=== PATIENT | male | born 1940 | race Caucasian/White ===

== ENCOUNTER → 2017-07-15 | Outpatient (CLI) | payer MEDICARE ==
[~2017-07-15] MED LIST: ASPI81EC; Adult Low Dose81 MG PO; Alpha-Lipoic Ac50 MG PO; Anastrozole1 GM PO; CYAN1000I IM; D MANNOSE PO; Glucosamine Ch1 EAC4 PO; HEALTHY HEART1 EACH PO; LOSA50 PO; MEGA MULTI FOR1 EAC1 PO; METF500 PO; MULVITA; MULVITMIND PO; MYRBETRIQ25 MG PO; OMEP20ER PO; OXYACE5T PO; PRILOSEC; PROM25 PO; PROSTATE HEALT1 EACH PO; PSEU120ER PO; RANI150 PO; TAMS.4ER PO; TESTOSTERONE INJ; VALS80 PO; VITAMIN B-12; [UNRECOGNIZED DRUG - OTHER] INJ
[2017-07-15 11:59] LABS: Adenovirus F 40/41 Not Detected (NOT DETECT); Astrovirus Not Detected (NOT DETECT); Campylobacter Sp Not Detected (NOT DETECT); Cryptosporidium Not Detected (NOT DETECT); Cyclospora Cayetanensis Not Detected (NOT DETECT); E. Coli O157 Not Detected (NOT DETECT); Entamoeba Histolytica Not Detected (NOT DETECT); Enteroaggregative E. coli-EAEC Not Detected (NOT DETECT); Enteropathogenic E. coli-EPEC Not Detected (NOT DETECT); Enterotoxigenic E. coli-ETEC Not Detected (NOT DETECT); Giardia Lamblia Not Detected (NOT DETECT); Norovirus GI/GII Not Detected (NOT DETECT); Plesiomonas Shigelloides Not Detected (NOT DETECT); Rotavirus A Not Detected (NOT DETECT); Salmonella Sp Not Detected (NOT DETECT); Sapovirus Not Detected (NOT DETECT); Shiga Toxin-prod E. coli-STEC Not Detected (NOT DETECT); Shigella/Enteroin E. coli-EIEC Not Detected (NOT DETECT); Vibrio Cholerae Not Detected (NOT DETECT); Vibrio Sp Not Detected (NOT DETECT); Yersinia Enterocolitica Not Detected (NOT DETECT)
== END | disposition home or self-care (01) ==
LOC: LAB SHORT 09:30 → LAB 09:30 → EDSTATUS 07-09 15:40 → LAB FUT 07-09 15:40
PROVIDERS: Internal Medicine
DX: R19.7 Diarrhea, unspecified (principal)
CPT/HCPCS: 87507

== ENCOUNTER → 2018-02-10 | Outpatient (CLI) | payer MEDICARE ==
[2018-02-11 08:26] LABS: Source, Urine Clean Catch
[2018-02-11 10:17] LABS: Appearance, Urine Hazy (Clear); Bilirubin, Urine Neg (Neg); Blood, Urine 4+ (Neg); Color, Urine Yellow (P-Yellow); Glucose Qualitative, Urine Neg (Neg); Ketones, Urine Neg (Neg); Leukocyte Esterase, Urine 2+ (Neg); Nitrite, Urine Neg (Neg); Protein, Urine 2+ (Neg); Specific Gravity, Urine 1.025 (1.003-1.022); Urobilinogen, Urine NORM (Normal)
[2018-02-11 11:09] LABS: Bacteria Few /hpf; Mucus Light (0-Heavy); Squamous Epithelial Cells Few /hpf (Few)
[2018-02-11 11:10] LABS: Calcium Oxalate Crystals Few /hpf
== END | disposition home or self-care (01) ==
LOC: LAB SHORT 17:00 → LAB 17:00
PROVIDERS: Internal Medicine
DX: R10.9 Unspecified abdominal pain (principal)
CPT/HCPCS: 81001

== ENCOUNTER 2018-12-21 11:06 | Inpatient (IN) | payer MEDICARE ==
[~2018-12-21] VITALS: Ht 185.4 cm; Wt 108.4 kg
[~2018-12-21 11:06] MED LIST changes: -Adult Low Dose81 MG PO; -OMEP20ER PO
[2018-12-21 11:33] LABS: BASOPHILS ABSOLUTE AUTO 0.03 K/mm3 (0.00-0.23); BASOPHILS PERCENT AUTO 0 % (0-2); EOSINOPHILS PERCENT AUTO 1 % (0-6); Hematocrit 39.1 % (37.0-53.0); Hemoglobin 13.3 g/dL (13.5-17.5); IMMATURE GRAN ABSOLUTE AUTO 0.12 K/mm3 (0.00-0.10); IMMATURE GRAN PERCENT AUTO 1 % (0-1); LYMPHOCYTES ABSOLUTE AUTO 1.12 K/mm3 (0.84-5.20); LYMPHOCYTES PERCENT AUTO 9 % (21-46); MONOCYTES ABSOLUTE AUTO 0.99 K/mm3 (0.16-1.47); MONOCYTES PERCENT AUTO 8 % (4-13); Mean Corpuscular HGB 29.4 pg (26.0-34.0); Mean Corpuscular Volume 86 fL (80-100); Mean Platelet Volume 10.2 fL (9.1-12.4); NEUTROPHILS ABSOLUTE AUTO 10.42 K/mm3 (1.96-9.15); NEUTROPHILS PERCENT AUTO 82 % (41-73); Platelet Count 203 K/mm3 (150-400); RDW Coefficient Variation 13.8 % (11.7-14.2); RDW Standard Deviation 44.1 fL (35.1-46.3); Red Blood Cell Count 4.53 M/mm3 (4.30-5.90); White Blood Cell Count 12.78 K/mm3 (4.00-11.30)
[2018-12-21] MEDS ORDERED: HYDPAM25 PO (11:36)
[2018-12-21 11:53] LABS: Albumin, Blood 2.6 g/dL (3.4-5.0); Albumin/Globulin Ratio 0.6 (0.8-1.8); Bilirubin, Total 0.7 mg/dL (0.1-1.0); Bun/Creatinine Ratio 21.3 (12.0-20.0); Calcium, Blood 8.7 mg/dL (8.5-10.1); Creatinine, Blood 1.27 mg/dL (0.60-1.20); Globulin, Blood 4.5 g/dL (2.2-4.0); Potassium, Blood 3.5 mmol/L (3.5-5.5); Total Protein, Blood 7.1 g/dL (6.4-8.2)
[2018-12-21 12:27] LABS: Source, Urine Catheter
[2018-12-21 12:43] LABS: Bilirubin, Urine Neg (Neg); Blood, Urine 5+ (Neg); Glucose Qualitative, Urine Neg (Neg); Ketones, Urine Neg (Neg); Leukocyte Esterase, Urine 3+ (Neg); Nitrite, Urine Pos (Neg); Protein, Urine 3+ (Neg); Specific Gravity, Urine 1.015 (1.003-1.022); Urobilinogen, Urine NORM (Normal)
[2018-12-21 13:09] LABS: Appearance, Urine Cloudy (Clear); Color, Urine Yellow (P-Yellow)
[2018-12-21 13:10] LABS: Bacteria Many /hpf; Mucus Light (0-Heavy); Squamous Epithelial Cells Few /hpf (Few); White Blood Cells, Urine TNTC /hpf (0-5)
[2018-12-21 13:11] LABS: Free Thyroxine 1.52 ng/dL (0.70-1.60); Magnesium, Blood 1.9 mg/dL (1.6-2.4)
[2018-12-21 13:15] LABS: Thyroid Stimulating Hormone 2.48 uIU/mL (0.360-4.800)
[2018-12-21] MEDS ORDERED: Adult Low Dose81 MG PO (15:40)
[2018-12-21] MEDS ORDERED: OMEP20ER PO (15:40)
[2018-12-21] MEDS ORDERED: Hydrocortiso453.6 G1 TOP (15:42)
[2018-12-21] MEDS ORDERED: BISA10S PR (18:23)
--- NOTE | 2018-12-21 19:17 | NUR ---
SHIFT SUMMARY SINCE ARRIVAL TO UNIT, DNR BRACELET PLACED. URINE HAS BEEN DRAK YELLOW WITH NO C/O PAIN. DENIES NEEDS.
--- NOTE | 2018-12-22 04:45 | NUR ---
MEMBERSHIP SOLICITOR SUMMARY NO ACUTE CHANGES THIS SHIFT. PT AAOX4 AND VERY PLEASANT. CONTINUING ON IV FLUIDS AND ANTIBIOTICS. PT BEDBOUND DUE TO ADVANCED MS. PT IS NORMALLY INDEPENDENT TO HIS WHEELCHAIR, HOWEVER PT REMAINS WEAK AND UNABLE AT THIS TIME. PT REPORTS "FEELING LIKE I HAVE TO PUSH SOMETIMES TO GET MY URINE OUT". RHOADES CATHETER IS PATENT AND DRAINING ADEQUATE AMOUNTS OF URINE. NO OTHER COMPLAINTS FROM PT. VSS, WILL CONTINUE TO MONITOR.
[2018-12-22 05:32] LABS: Hematocrit 35.8 % (37.0-53.0); Hemoglobin 11.9 g/dL (13.5-17.5); Mean Corpuscular HGB 28.7 pg (26.0-34.0); Mean Corpuscular HGB Conc 33.2 g/dL (31.5-36.5); Mean Corpuscular Volume 86 fL (80-100); Mean Platelet Volume 10.4 fL (9.1-12.4); Platelet Count 214 K/mm3 (150-400); RDW Coefficient Variation 13.9 % (11.7-14.2); RDW Standard Deviation 44.2 fL (35.1-46.3); Red Blood Cell Count 4.15 M/mm3 (4.30-5.90); White Blood Cell Count 11.15 K/mm3 (4.00-11.30)
[2018-12-22 05:51] LABS: Anion Gap 8 mmol/L (6-16); Blood Urea Nitrogen 22 mg/dL (8-24); Bun/Creatinine Ratio 18.3 (12.0-20.0); CO2, Blood 25 mmol/L (21-32); Calcium, Blood 8.3 mg/dL (8.5-10.1); Chloride, Blood 109 mmol/L (98-108); Glomerular Filtration Rate >60 (60-); Glucose, Blood 101 mg/dL (70-99); Magnesium, Blood 1.8 mg/dL (1.6-2.4); Potassium, Blood 3.5 mmol/L (3.5-5.5); Sodium, Blood 142 mmol/L (136-145)
[2018-12-22 05:55] LABS: BASOPHILS PERCENT MAN 0 % (0-2); EOSINOPHILS ABSOLUTE MAN 0.33 K/mm3 (0.00-0.68); EOSINOPHILS PERCENT MAN 3 % (0-6); LYMPHOCYTES % ATYPICAL MANUAL 4 % (0-0); LYMPHOCYTES ABSOLUTE MAN 1.22 K/mm3 (0.84-5.20); LYMPHOCYTES PERCENT MAN 7 % (21-46); MONOCYTES ABSOLUTE MAN 1.33 K/mm3 (0.16-1.47); MONOCYTES PERCENT MAN 12 % (4-13); NEUTROPHILS ABSOLUTE MAN 8.25 K/mm3 (1.96-9.15); SEG NEUTROPHILS PERCENT MAN 74 % (41-73); TOTAL CELLS COUNTED 100
--- NOTE | 2018-12-22 20:21 | NUR ---
SUMMARY PT IS A/O X4, PLEASANT AFFECT. HX ADVANCED MS, W/C BOUND @ HOME. HE STATE GOOD FEELING BLE, STATES NORMALLY ABLE TO TRANSFER TO W/C HOWEVER NEEDS ASSIST @ THIS TIME D/T INCREASED WEAKNESS. DX UTI, HE HAS CHR RHOADES CATH D/T NEUROGENIC BLADDER, STATE HE CHANGES HIMSELF, STATE CHANGED 9 DAYS AGO, DECLINES TO HAVE IT CHANGED @ ADMIT WHILE IN ER. IV ANTIBX ARE ORDERED. HE STATE INTERMITTANT PAIN "URETHRA", DR MANNING ORDER PYRIDIUM, PT STATE EFFECTIVE. ORDER TRAMADOL FOR CHR R SHOULDER PAIN. VSS.
--- NOTE | 2018-12-23 04:07 | NUR ---
PT HAD AN UNEVENTFUL SHIFT. VSS. PAIN WAS MANAGED WITH THE PRN MEDS ORDERED. PT REMAINS A 1X ASSIST TURN PIVOT TO THE COMMODE. WILL CONTINUE TO MONITOR.
--- NOTE | 2018-12-23 16:31 | NUR ---
Spiritual care visit conducted. Patient openly shares about his spiritual journey, asks questions of a spiritual nature, discusses his family unit complications. I listen empathically, provide pastoral school counselor and provide prayer. Patient responds well and invites me to come back anytime.
--- NOTE | 2018-12-24 05:33 | NUR ---
SUMMARY: A/OX4, SPECIFIES NEEDS AND SLEPT MAJORITY OF SHIFT. PT HAS HX MS, IS W/C BOUND AT HOME AND IS 1-2P ASSIST TO BSC. CHRONIC RHOADES FOR NEUROGENIC BLADDER IS PATENT AND DRAINING. ORANGE URINE OBSERVED D/T RECIEVING PYRIDIUM PRN AT HS W/GOOD RELIEF REPORTED. IV ABX BEING RECIEVED FOR UTI. NO ACUTE CHANGES, VSS/AFEBRILE AND PT SLEPT MAJORITY OF NOCTE. URINE CX'S PENDING THEN PROBABLE D/C TO SNFF. WCTM AND REPORT TO DAY RN.
[2018-12-24] MEDS ORDERED: ACET325 PO (11:25)
[2018-12-24] MEDS ORDERED: Vsl#3 Capsule1 EACH PO (11:26)
[2018-12-24] MEDS ORDERED: Pyridium200 MG PO (11:26)
[2018-12-24] MEDS ORDERED: LEVO750 PO (11:27)
--- NOTE | 2018-12-24 12:20 | NUR ---
CATHETER CARE PERFORMED PRIOR TO DISCHARGE. PT. LEFT VIA HIS PERSONAL WC WHICH HE PIVOT TRANSFERS INTO, RHOADES CATHETER IN PLACE. TRIED TO CALL OLEGARIO RIGGINS TO GIVE REPORT BUT WAS KEPT ON HOLD FOR OVER 10 MINUTES WILL TRY AGAIN.
--- NOTE | 2018-12-24 12:40 | NUR ---
JACQUI FERNANDO FROM CALLED BACK TO GET REPORT REPORT ON PT. CHOPRA THAT LEFT HERE EARLIER. ALSO GAVE REPORT ON GIOVANNA INGRAM WHO WAS BEING PICKED UP AT THIS TIME. PAPERWORK FOR BOTH PT'S GIVEN TO ELECTRONICS PROCESSING SUPERVISOR.
== END 2018-12-24 12:20 | DRG 699 ==
LOC: ER 11:06 → MEDS 14:42 → ENPENDDIS 12-24 10:58 → MEDS 12-24 12:20
PROVIDERS: Emergency Medicine; ADMIT Internal Medicine
DX: T83.511A Infection and inflammatory reaction due to indwelling urethral catheter, initial encounter (principal); N17.9 Acute kidney failure, unspecified; G11.4 Hereditary spastic paraplegia; N39.0 Urinary tract infection, site not specified; E86.0 Dehydration; I10 Essential (primary) hypertension; G35 Multiple sclerosis; Z74.09 Other reduced mobility; N31.9 Neuromuscular dysfunction of bladder, unspecified; I35.0 Nonrheumatic aortic (valve) stenosis; Z66 Do not resuscitate; Z88.0 Allergy status to penicillin; Z79.811 Long term (current) use of aromatase inhibitors; Z79.84 Long term (current) use of oral hypoglycemic drugs; Z79.82 Long term (current) use of aspirin; Z79.899 Other long term (current) drug therapy
CPT/HCPCS: 36415; 51702; 70450; 71045; 80048; 80053; 81001; 83735; 84439; 84443; 85025; 87077; 87086; 87147; 87186; 93005; 93010; 96361; 96365; 97110; 97162; 97166; 97530; 97535; 99285-25; A9270; J0744; J1650; J1956; J7030

== ENCOUNTER 2019-07-16 17:58 | Inpatient (IN) | payer MEDICARE ==
[~2019-07-16] VITALS: Ht 185.4 cm; Wt 114.6 kg
[~2019-07-16 17:58] MED LIST changes: +ACET325 PO; +Adult Low Dose81 MG PO; +BISA10S PR; +HYDPAM25 PO; +Hydrocortiso453.6 G1 TOP; +LEVO750 PO; +OMEP20ER PO; +Pyridium200 MG PO; +Vsl#3 Capsule1 EACH PO
[2019-07-16 18:24] LABS: BASOPHILS ABSOLUTE AUTO 0.04 K/mm3 (0.00-0.23); BASOPHILS PERCENT AUTO 0 % (0-2); EOSINOPHILS PERCENT AUTO 0 % (0-6); Hematocrit 37.8 % (37.0-53.0); Hemoglobin 12.7 g/dL (13.5-17.5); IMMATURE GRAN ABSOLUTE AUTO 0.12 K/mm3 (0.00-0.10); IMMATURE GRAN PERCENT AUTO 1 % (0-1); LYMPHOCYTES ABSOLUTE AUTO 0.49 K/mm3 (0.84-5.20); LYMPHOCYTES PERCENT AUTO 3 % (21-46); MONOCYTES ABSOLUTE AUTO 1.08 K/mm3 (0.16-1.47); MONOCYTES PERCENT AUTO 6 % (4-13); Mean Corpuscular HGB 28.8 pg (26.0-34.0); Mean Corpuscular HGB Conc 33.6 g/dL (31.5-36.5); Mean Corpuscular Volume 86 fL (80-100); Mean Platelet Volume 9.7 fL (9.1-12.4); NEUTROPHILS ABSOLUTE AUTO 16.66 K/mm3 (1.96-9.15); NEUTROPHILS PERCENT AUTO 91 % (41-73); Platelet Count 260 K/mm3 (150-400); RDW Coefficient Variation 13.7 % (11.7-14.2); RDW Standard Deviation 43.1 fL (35.1-46.3); Red Blood Cell Count 4.41 M/mm3 (4.30-5.90); White Blood Cell Count 18.39 K/mm3 (4.00-11.30)
[2019-07-16] MEDS ORDERED: ZOLPIDEM TARTRA10 MG PO (18:47)
[2019-07-16] MEDS ORDERED: LOSA50 PO (18:48)
[2019-07-16] MEDS ORDERED: XYZAL5 MG PO (18:49)
[2019-07-16] MEDS ORDERED: ALLEGRA ALLERG180 MG PO (18:49)
[2019-07-16] MEDS ORDERED: HYDHCL25 PO (18:50)
[2019-07-16 18:52] LABS: Albumin, Blood 2.9 g/dL (3.4-5.0); Albumin/Globulin Ratio 0.6 (0.8-1.8); Bilirubin, Total 0.8 mg/dL (0.1-1.0); Bun/Creatinine Ratio 17.8 (12.0-20.0); Calcium, Blood 8.9 mg/dL (8.5-10.1); Creatinine, Blood 1.57 mg/dL (0.60-1.20); Globulin, Blood 4.6 g/dL (2.2-4.0); Potassium, Blood 3.9 mmol/L (3.5-5.5); Total Protein, Blood 7.5 g/dL (6.4-8.2)
[2019-07-16 19:14] LABS: Bilirubin, Urine Neg (Neg); Blood, Urine 5+ (Neg); Glucose Qualitative, Urine Neg (Neg); Ketones, Urine 2+ (Neg); Leukocyte Esterase, Urine 3+ (Neg); Nitrite, Urine Pos (Neg); Protein, Urine 3+ (Neg); Specific Gravity, Urine 1.015 (1.003-1.022); Urobilinogen, Urine NORM (Normal)
[2019-07-16 19:21] LABS: Appearance, Urine Hazy (Clear); Color, Urine Yellow (P-Yellow); White Blood Cells, Urine TNTC /hpf (0-5)
[2019-07-16 19:24] LABS: Bacteria Many /hpf; Squamous Epithelial Cells Not Seen /hpf (Few)
--- NOTE | 2019-07-17 05:08 | NUR ---
SHIFT SUMMARY: 79 Y/O OBESE MALE RESTED COMFORTABLY ALL SHIFT; RHOADES CATHETER DRAINING DARK YELLOW FLUID WITH SEDIMENT ATTACHED TO RIGHT UPPER THIGH; ALERT AND ORIENTED X 2; ABLE TO FOLLOW ALL SIMPLE VERBAL COMMANDS; DENIES PAIN OR NAUSEA; BED ALARM APPLIED, BED LOW POSITION WITH CALL LIGHT AT SIDE.
[2019-07-17 05:23] LABS: BASOPHILS ABSOLUTE AUTO 0.03 K/mm3 (0.00-0.23); BASOPHILS PERCENT AUTO 0 % (0-2); EOSINOPHILS PERCENT AUTO 0 % (0-6); Hematocrit 33.4 % (37.0-53.0); Hemoglobin 11.1 g/dL (13.5-17.5); IMMATURE GRAN ABSOLUTE AUTO 0.15 K/mm3 (0.00-0.10); IMMATURE GRAN PERCENT AUTO 1 % (0-1); LYMPHOCYTES ABSOLUTE AUTO 0.49 K/mm3 (0.84-5.20); LYMPHOCYTES PERCENT AUTO 3 % (21-46); MONOCYTES ABSOLUTE AUTO 1.11 K/mm3 (0.16-1.47); MONOCYTES PERCENT AUTO 7 % (4-13); Mean Corpuscular HGB 29.1 pg (26.0-34.0); Mean Corpuscular HGB Conc 33.2 g/dL (31.5-36.5); Mean Corpuscular Volume 87 fL (80-100); Mean Platelet Volume 10.2 fL (9.1-12.4); NEUTROPHILS ABSOLUTE AUTO 13.51 K/mm3 (1.96-9.15); NEUTROPHILS PERCENT AUTO 88 % (41-73); Platelet Count 218 K/mm3 (150-400); RDW Coefficient Variation 14.1 % (11.7-14.2); RDW Standard Deviation 45.2 fL (35.1-46.3); Red Blood Cell Count 3.82 M/mm3 (4.30-5.90); White Blood Cell Count 15.29 K/mm3 (4.00-11.30)
[2019-07-17 05:48] LABS: Bun/Creatinine Ratio 16.6 (12.0-20.0); Calcium, Blood 7.9 mg/dL (8.5-10.1); Creatinine, Blood 1.63 mg/dL (0.60-1.20); Potassium, Blood 3.7 mmol/L (3.5-5.5)
--- NOTE | 2019-07-17 19:38 | NUR ---
SHIFT SUMMARY: NO ACUTE CHANGES TO REPORT THIS SHIFT. PT HX DEMENTIA; A&OX2; NEEDS FREQUENT REMINDERS & REDIRECTION.CHRONIC RHOADES IN PLACE; PATENT & DRAINING. MEDICATED FOR BACK PAIN PER EMAR. IV FLUIDS CONTINUING. REPORT GIVEN TO ONCOMING RN.
--- NOTE | 2019-07-18 04:29 | NUR ---
SHIFT SUMMARY: 79 Y/O OBESE MALE HAD TEMPERATURE 102.0 THIS SHIFT WITH TYLENOL 650MG PO GIVEN AND FOLLOW UP TEMPERATURE 101.4; LUNG SOUNDS ARE CLEAR THROUGHOUT; ALERT AND ORIENTED X 2; USING BEDSIDE CALL LIGHT; DENIES PAIN OR NAUSEA; RHOADES DRAINING DARK YELLOW FLUID WITH SEDIMENT; BED ALARM APPLIED, BED LOW POSITION WITH CALL LIGHT AT SIDE.
[2019-07-18 05:17] LABS: BASOPHILS ABSOLUTE AUTO 0.03 K/mm3 (0.00-0.23); BASOPHILS PERCENT AUTO 0 % (0-2); EOSINOPHILS ABSOLUTE AUTO 0.03 K/mm3 (0.00-0.68); EOSINOPHILS PERCENT AUTO 0 % (0-6); Hematocrit 32.7 % (37.0-53.0); Hemoglobin 10.7 g/dL (13.5-17.5); IMMATURE GRAN ABSOLUTE AUTO 0.08 K/mm3 (0.00-0.10); IMMATURE GRAN PERCENT AUTO 1 % (0-1); LYMPHOCYTES ABSOLUTE AUTO 0.46 K/mm3 (0.84-5.20); LYMPHOCYTES PERCENT AUTO 4 % (21-46); MONOCYTES ABSOLUTE AUTO 0.73 K/mm3 (0.16-1.47); MONOCYTES PERCENT AUTO 6 % (4-13); Mean Corpuscular HGB 28.5 pg (26.0-34.0); Mean Corpuscular HGB Conc 32.7 g/dL (31.5-36.5); Mean Corpuscular Volume 87 fL (80-100); Mean Platelet Volume 10.2 fL (9.1-12.4); NEUTROPHILS ABSOLUTE AUTO 11.07 K/mm3 (1.96-9.15); NEUTROPHILS PERCENT AUTO 89 % (41-73); Platelet Count 229 K/mm3 (150-400); RDW Coefficient Variation 13.9 % (11.7-14.2); Red Blood Cell Count 3.76 M/mm3 (4.30-5.90)
[2019-07-18 05:44] LABS: Bun/Creatinine Ratio 17.8 (12.0-20.0); Calcium, Blood 7.7 mg/dL (8.5-10.1); Creatinine, Blood 1.52 mg/dL (0.60-1.20); Potassium, Blood 3.7 mmol/L (3.5-5.5)
[2019-07-18 09:36] LABS: Adenovirus Not Detected (NOT DETECT); Bordetella pertussis Not Detected (NOT DETECT); Chlamydophila pneumoniae Not Detected (NOT DETECT); Coronavirus 229E Not Detected (NOT DETECT); Coronavirus HKU1 Not Detected (NOT DETECT); Coronavirus NL63 Not Detected (NOT DETECT); Coronavirus OC43 Not Detected (NOT DETECT); Human Metapneumovirus Not Detected (NOT DETECT); Human Rhinovirus/Enterovirus Not Detected (NOT DETECT); Influenza A Not Detected (NOT DETECT); Influenza A/2009-H1 Not Detected (NOT DETECT); Influenza A/H1 Not Detected (NOT DETECT); Influenza A/H3 Not Detected (NOT DETECT); Influenza B Not Detected (NOT DETECT); Mycoplasma pneumoniae Not Detected (NOT DETECT); Parainfluenza Virus 1 Not Detected (NOT DETECT); Parainfluenza Virus 2 Not Detected (NOT DETECT); Parainfluenza Virus 3 Not Detected (NOT DETECT); Parainfluenza Virus 4 Not Detected (NOT DETECT); Respiratory Syncytial Virus Not Detected (NOT DETECT)
--- NOTE | 2019-07-18 18:40 | NUR ---
SHIFT SUMMARY: NO ACUTE CHANGES TO REPORT THIS SHIFT. PT A&O; CALM AND COOPERATIVE WITH CARE. HX FALLS, WEAKNESS - MULTIPLE SCLEROSIS; BEDREST. RHOADES IN PLACE R/T NEUROGENIC BLADDER; PATENT AND DRAINING. MEDICATED FOR BACK PAIN PER EMAR; EGGCRATE ADDED TO BED. IV ABX & FLUIDS CONTINUING. WCTM.
--- NOTE | 2019-07-19 05:15 | NUR ---
RESTING QUIETLY WITH OCCASIONAL INTERRUPTIONS. IVF INFUSING AT 75 ML/HR. RECEIVED TYLENOL X 2 THIS SHIFT FOR DISCOMFORT. CURRENTLY RESTING QUIETLY. CALL LIGHT IN REACH.
[2019-07-19 05:25] LABS: BASOPHILS ABSOLUTE AUTO 0.03 K/mm3 (0.00-0.23); BASOPHILS PERCENT AUTO 0 % (0-2); EOSINOPHILS ABSOLUTE AUTO 0.22 K/mm3 (0.00-0.68); EOSINOPHILS PERCENT AUTO 2 % (0-6); Hematocrit 34.1 % (37.0-53.0); Hemoglobin 11.3 g/dL (13.5-17.5); IMMATURE GRAN ABSOLUTE AUTO 0.06 K/mm3 (0.00-0.10); IMMATURE GRAN PERCENT AUTO 1 % (0-1); LYMPHOCYTES ABSOLUTE AUTO 0.68 K/mm3 (0.84-5.20); LYMPHOCYTES PERCENT AUTO 7 % (21-46); MONOCYTES ABSOLUTE AUTO 0.67 K/mm3 (0.16-1.47); MONOCYTES PERCENT AUTO 7 % (4-13); Mean Corpuscular HGB 28.6 pg (26.0-34.0); Mean Corpuscular HGB Conc 33.1 g/dL (31.5-36.5); Mean Corpuscular Volume 86 fL (80-100); Mean Platelet Volume 10.4 fL (9.1-12.4); NEUTROPHILS ABSOLUTE AUTO 7.66 K/mm3 (1.96-9.15); NEUTROPHILS PERCENT AUTO 82 % (41-73); Platelet Count 268 K/mm3 (150-400); RDW Coefficient Variation 14.2 % (11.7-14.2); RDW Standard Deviation 45.5 fL (35.1-46.3); Red Blood Cell Count 3.95 M/mm3 (4.30-5.90); White Blood Cell Count 9.32 K/mm3 (4.00-11.30)
[2019-07-19 05:48] LABS: Bun/Creatinine Ratio 16.7 (12.0-20.0); Calcium, Blood 8.3 mg/dL (8.5-10.1); Creatinine, Blood 1.26 mg/dL (0.60-1.20); Potassium, Blood 4.2 mmol/L (3.5-5.5)
--- NOTE | 2019-07-19 14:49 | NUR ---
Patient is lying in bed and alert. Patient's spouse, Atiya, is bedside. They tell me about patient's medical history, about both of their spiritual journey's and about the plan moving forward. Patient tells me his concern about black mold where he lives, about living with M.S. and and his spiritual struggles. I listen empathically, reinforce helpful attitudes and practices, normalize patient's experience and provide pastoral executive assistant to general counsel and prayer. Patient responds well and shows signs of restored eduardo. I will continue to remain available to patient and family.
[2019-07-19] MEDS ORDERED: CIPR500 PO (15:56)
[2019-07-19] MEDS ORDERED: Vsl#3 Capsule1 EACH PO (15:57)
[2019-07-19] MEDS ORDERED: DELTASONE20 MG PO (15:58)
--- NOTE | 2019-07-19 16:53 | NUR ---
PATIENT DC'D TO [facility] VIA [facility]. REPORTS CALLED TO FRANCINE NURSE AT [facility]. PACKET GIVEN TO WHEAT AND OATS FLAKE MILLER, SCRIPT FOR AMBIEN PLACED IN PACKET. PATIENT DENIES ANY FURTHER QUESTIONS OR CONCERNS.
== END 2019-07-19 16:50 | DRG 698 ==
LOC: ER 17:58 → MEDS 20:46
PROVIDERS: Emergency Medicine; Internal Medicine; ADMIT Hospitalist
DX: T83.511A Infection and inflammatory reaction due to indwelling urethral catheter, initial encounter (principal); A41.9 Sepsis, unspecified organism; R65.20 Severe sepsis without septic shock; N17.9 Acute kidney failure, unspecified; N39.0 Urinary tract infection, site not specified; G35 Multiple sclerosis; I35.0 Nonrheumatic aortic (valve) stenosis; I87.2 Venous insufficiency (chronic) (peripheral); I10 Essential (primary) hypertension; G62.9 Polyneuropathy, unspecified; N31.9 Neuromuscular dysfunction of bladder, unspecified; K59.09 Other constipation; J30.2 Other seasonal allergic rhinitis; Z88.0 Allergy status to penicillin; Z74.09 Other reduced mobility
CPT/HCPCS: 0099U; 36415; 80048; 80053; 81001; 83605; 85025; 87086; 93005; 93010; 96361; 96365; 97110; 97112; 97162; 99285-25; A9270; J0744; J1650; J1956; J3480; J7030; J7050

== ENCOUNTER 2020-01-08 17:52 | Emergency (ER) | payer MEDICARE ==
[~2020-01-08] VITALS: Ht 172.7 cm; Wt 111.1 kg
[~2020-01-08 17:52] MED LIST changes: +ALLEGRA ALLERG180 MG PO; +CIPR500 PO; +DELTASONE20 MG PO; +HYDHCL25 PO; +LOSA25 PO; +XYZAL5 MG PO; +ZOLPIDEM TARTRA10 MG PO
[2020-01-08 18:26] LABS: BASOPHILS ABSOLUTE AUTO 0.02 K/mm3 (0.00-0.23); BASOPHILS PERCENT AUTO 0 % (0-2); EOSINOPHILS ABSOLUTE AUTO 0.05 K/mm3 (0.00-0.68); EOSINOPHILS PERCENT AUTO 0 % (0-6); Hemoglobin 13.2 g/dL (13.5-17.5); IMMATURE GRAN ABSOLUTE AUTO 0.04 K/mm3 (0.00-0.10); IMMATURE GRAN PERCENT AUTO 0 % (0-1); LYMPHOCYTES ABSOLUTE AUTO 0.56 K/mm3 (0.84-5.20); LYMPHOCYTES PERCENT AUTO 5 % (21-46); MONOCYTES ABSOLUTE AUTO 1.17 K/mm3 (0.16-1.47); MONOCYTES PERCENT AUTO 10 % (4-13); Mean Corpuscular HGB 29.1 pg (26.0-34.0); Mean Corpuscular HGB Conc 33.8 g/dL (31.5-36.5); Mean Corpuscular Volume 86 fL (80-100); Mean Platelet Volume 10.1 fL (9.1-12.4); NEUTROPHILS ABSOLUTE AUTO 10.03 K/mm3 (1.96-9.15); NEUTROPHILS PERCENT AUTO 85 % (41-73); Platelet Count 201 K/mm3 (150-400); RDW Coefficient Variation 13.8 % (11.7-14.2); RDW Standard Deviation 43.2 fL (35.1-46.3); Red Blood Cell Count 4.54 M/mm3 (4.30-5.90); White Blood Cell Count 11.87 K/mm3 (4.00-11.30)
[2020-01-08 18:32] LABS: Alanine Aminotransfer (ALT/SGP 15 U/L (12-78); Albumin/Globulin Ratio 0.7 (0.8-1.8); Alk Phos 105 U/L (50-136); Anion Gap 7 mmol/L (6-16); Aspartate Aminotrans (AST/SGOT 14 U/L (12-37); Bilirubin, Total 0.5 mg/dL (0.1-1.0); Blood Urea Nitrogen 18 mg/dL (8-24); Bun/Creatinine Ratio 16.5 (12.0-20.0); CO2, Blood 23 mmol/L (21-32); Calcium, Blood 8.5 mg/dL (8.5-10.1); Chloride, Blood 106 mmol/L (98-108); Creatinine, Blood 1.09 mg/dL (0.60-1.20); Globulin, Blood 4.1 g/dL (2.2-4.0); Glomerular Filtration Rate >60 (60-); Glucose, Blood 115 mg/dL (70-99); Potassium, Blood 3.7 mmol/L (3.5-5.5); Sodium, Blood 136 mmol/L (136-145); Total Protein, Blood 7.1 g/dL (6.4-8.2)
[2020-01-08 19:42] LABS: Source, Urine Catheter
[2020-01-08 19:48] LABS: Appearance, Urine Hazy (Clear); Bilirubin, Urine Neg (Neg); Blood, Urine 5+ (Neg); Color, Urine Yellow (P-Yellow); Glucose Qualitative, Urine Neg (Neg); Ketones, Urine Neg (Neg); Leukocyte Esterase, Urine 3+ (Neg); Nitrite, Urine Neg (Neg); Protein, Urine 2+ (Neg); Urobilinogen, Urine NORM (Normal)
[2020-01-08 19:56] LABS: Amorphous Light (0-Heavy); Bacteria Many /hpf; Mucus Light (0-Heavy); Squamous Epithelial Cells Rare /hpf (Few); White Blood Cells, Urine 50-100 /hpf (0-5)
[2020-01-08] MEDS ORDERED: Cipro500 MG PO ×2 (20:36→21:51)
[2020-01-08] MEDS ORDERED: ATORVASTATIN CA20 MG PO (20:41)
== END 2020-01-08 21:50 | disposition home or self-care (01) ==
LOC: ER 17:52
PROVIDERS: Emergency Medicine
DX: N39.0 Urinary tract infection, site not specified (principal); Z96.0 Presence of urogenital implants; Z86.69 Personal history of other diseases of the nervous system and sense organs; Z88.0 Allergy status to penicillin; Z79.899 Other long term (current) drug therapy
CPT/HCPCS: 36415; 51702; 80053; 81001; 83690; 84484; 85025; 87077; 87086; 87186; 93005; 93010; 99284-25

== ENCOUNTER 2020-05-08 10:47 | Emergency (ER) | payer MEDICARE ==
[~2020-05-08] VITALS: Ht 185.4 cm; Wt 102.1 kg
[~2020-05-08 10:47] MED LIST changes: +ATORVASTATIN CA20 MG PO; +Cipro500 MG PO
[2020-05-08 11:20] LABS: BASOPHILS ABSOLUTE AUTO 0.03 K/mm3 (0.00-0.23); BASOPHILS PERCENT AUTO 0 % (0-2); EOSINOPHILS ABSOLUTE AUTO 0.09 K/mm3 (0.00-0.68); EOSINOPHILS PERCENT AUTO 1 % (0-6); Hematocrit 39.5 % (37.0-53.0); Hemoglobin 13.1 g/dL (13.5-17.5); IMMATURE GRAN ABSOLUTE AUTO 0.02 K/mm3 (0.00-0.10); IMMATURE GRAN PERCENT AUTO 0 % (0-1); LYMPHOCYTES ABSOLUTE AUTO 0.45 K/mm3 (0.84-5.20); LYMPHOCYTES PERCENT AUTO 4 % (21-46); MONOCYTES ABSOLUTE AUTO 0.87 K/mm3 (0.16-1.47); MONOCYTES PERCENT AUTO 8 % (4-13); Mean Corpuscular HGB 29.1 pg (26.0-34.0); Mean Corpuscular HGB Conc 33.2 g/dL (31.5-36.5); Mean Corpuscular Volume 88 fL (80-100); Mean Platelet Volume 10.2 fL (9.1-12.4); NEUTROPHILS ABSOLUTE AUTO 9.35 K/mm3 (1.96-9.15); NEUTROPHILS PERCENT AUTO 87 % (41-73); Platelet Count 162 K/mm3 (150-400); RDW Coefficient Variation 14.7 % (11.7-14.2); White Blood Cell Count 10.81 K/mm3 (4.00-11.30)
[2020-05-08 11:29] LABS: Source, Urine Catheter
[2020-05-08 11:32] LABS: Appearance, Urine Cloudy (Clear); Bilirubin, Urine Neg (Neg); Blood, Urine 5+ (Neg); Color, Urine Yellow (P-Yellow); Glucose Qualitative, Urine Neg (Neg); Ketones, Urine Neg (Neg); Leukocyte Esterase, Urine 3+ (Neg); Nitrite, Urine Pos (Neg); Protein, Urine 3+ (Neg); Urobilinogen, Urine NORM (Normal); pH, Urine 6.5 (5.0-8.0)
[2020-05-08 11:36] LABS: Alanine Aminotransfer (ALT/SGP 25 U/L (12-78); Albumin, Blood 2.5 g/dL (3.4-5.0); Albumin/Globulin Ratio 0.6 (0.8-1.8); Alk Phos 115 U/L (50-136); Anion Gap 6 mmol/L (6-16); Aspartate Aminotrans (AST/SGOT 31 U/L (12-37); Bilirubin, Total 0.7 mg/dL (0.1-1.0); Blood Urea Nitrogen 19 mg/dL (8-24); Bun/Creatinine Ratio 17.4 (12.0-20.0); CO2, Blood 24 mmol/L (21-32); Calcium, Blood 8.4 mg/dL (8.5-10.1); Chloride, Blood 107 mmol/L (98-108); Creatinine, Blood 1.09 mg/dL (0.60-1.20); Free Thyroxine 1.21 ng/dL (0.70-1.60); Globulin, Blood 4.4 g/dL (2.2-4.0); Glomerular Filtration Rate >60 (60-); Glucose, Blood 112 mg/dL (70-99); Potassium, Blood 4.2 mmol/L (3.5-5.5); Sodium, Blood 137 mmol/L (136-145); Total Protein, Blood 6.9 g/dL (6.4-8.2)
[2020-05-08 12:00] LABS: White Blood Cells, Urine TNTC /hpf (0-5)
[2020-05-08 12:01] LABS: Amorphous Mod (0-Heavy); Bacteria Many /hpf; Squamous Epithelial Cells Rare /hpf (Few); Transitional Epithelial Cells Few /hpf (0-Rare)
[2020-05-08] MEDS ORDERED: PLAVIX75 MG PO (12:22)
[2020-05-08] MEDS ORDERED: METOPROLOL SUCC25 MG PO (12:22)
[2020-05-08] MEDS ORDERED: ATOR40TA PO (12:22)
[2020-05-08] MEDS ORDERED: LOSARTAN POTASS25 M2 PO (12:22)
[2020-05-08] MEDS ORDERED: CIPR500 PO (12:40)
== END 2020-05-08 14:15 | disposition home or self-care (01) ==
LOC: ER 10:47
PROVIDERS: Emergency Medicine
DX: N39.0 Urinary tract infection, site not specified (principal); B35.6 Tinea cruris; Z88.0 Allergy status to penicillin; Z79.899 Other long term (current) drug therapy; Z79.02 Long term (current) use of antithrombotics/antiplatelets
CPT/HCPCS: 51702; 71045; 80053; 81001; 83735; 84439; 84443; 85025; 87077; 87086; 87186; 93005; 93010; 96374-59; 99284-25; J0744; J7030

== ENCOUNTER 2020-07-25 10:31 | Emergency (ER) | payer MEDICARE ==
[~2020-07-25] VITALS: Ht 185.4 cm; Wt 101.6 kg
[~2020-07-25 10:31] MED LIST changes: +ATOR40TA PO; +LOSARTAN POTASS25 M2 PO; +METOPROLOL SUCC25 MG PO; +PLAVIX75 MG PO
[2020-07-25 10:56] LABS: Source, Urine Clean Catch
[2020-07-25 11:03] LABS: BASOPHILS ABSOLUTE AUTO 0.03 K/mm3 (0.00-0.23); BASOPHILS PERCENT AUTO 0 % (0-2); EOSINOPHILS ABSOLUTE AUTO 0.06 K/mm3 (0.00-0.68); EOSINOPHILS PERCENT AUTO 1 % (0-6); Hematocrit 40.4 % (37.0-53.0); Hemoglobin 12.9 g/dL (13.5-17.5); IMMATURE GRAN ABSOLUTE AUTO 0.05 K/mm3 (0.00-0.10); IMMATURE GRAN PERCENT AUTO 0 % (0-1); LYMPHOCYTES ABSOLUTE AUTO 0.52 K/mm3 (0.84-5.20); LYMPHOCYTES PERCENT AUTO 4 % (21-46); MONOCYTES ABSOLUTE AUTO 0.82 K/mm3 (0.16-1.47); MONOCYTES PERCENT AUTO 6 % (4-13); Mean Corpuscular HGB 28.7 pg (26.0-34.0); Mean Corpuscular HGB Conc 31.9 g/dL (31.5-36.5); Mean Corpuscular Volume 90 fL (80-100); Mean Platelet Volume 9.9 fL (9.1-12.4); NEUTROPHILS PERCENT AUTO 89 % (41-73); Platelet Count 211 K/mm3 (150-400); RDW Coefficient Variation 15.2 % (11.7-14.2); RDW Standard Deviation 49.9 fL (35.1-46.3); White Blood Cell Count 12.88 K/mm3 (4.00-11.30)
[2020-07-25 11:10] LABS: Appearance, Urine Hazy (Clear); Color, Urine Orange (P-Yellow); Glucose Qualitative, Urine Neg (Neg); Ketones, Urine Neg (Neg); Leukocyte Esterase, Urine 3+ (Neg); Nitrite, Urine Pos (Neg); Protein, Urine 2+ (Neg)
[2020-07-25 11:11] LABS: Bilirubin, Urine 2+ (Neg); Blood, Urine 4+ (Neg); Urobilinogen, Urine 2+ (Normal)
[2020-07-25 11:18] LABS: White Blood Cells, Urine 50-100 /hpf (0-5)
[2020-07-25 11:21] LABS: Bacteria Many /hpf; Squamous Epithelial Cells Not Seen /hpf (Few)
[2020-07-25 11:22] LABS: Red Blood Cells, Urine 25-50 /hpf (0-2)
[2020-07-25 11:26] LABS: Alanine Aminotransfer (ALT/SGP 18 U/L (12-78); Albumin, Blood 3.2 g/dL (3.4-5.0); Albumin/Globulin Ratio 0.8 (0.8-1.8); Alk Phos 132 U/L (50-136); Anion Gap 7 mmol/L (6-16); Aspartate Aminotrans (AST/SGOT 15 U/L (12-37); Bilirubin, Total 1.3 mg/dL (0.1-1.0); Blood Urea Nitrogen 22 mg/dL (8-24); CO2, Blood 27 mmol/L (21-32); Calcium, Blood 9.1 mg/dL (8.5-10.1); Chloride, Blood 108 mmol/L (98-108); Glomerular Filtration Rate >60 (60-); Glucose, Blood 102 mg/dL (70-99); Potassium, Blood 3.9 mmol/L (3.5-5.5); Sodium, Blood 142 mmol/L (136-145); Total Protein, Blood 7.2 g/dL (6.4-8.2)
[2020-07-25] MEDS ORDERED: Bactrim Ds Tab1 EACH PO (12:18)
== END 2020-07-25 13:05 | disposition home or self-care (01) ==
LOC: ER 10:31
PROVIDERS: Physician Assistant
DX: N39.0 Urinary tract infection, site not specified (principal); Z88.0 Allergy status to penicillin; Z79.02 Long term (current) use of antithrombotics/antiplatelets; Z79.899 Other long term (current) drug therapy
CPT/HCPCS: 51702; 80053; 81001; 85025; 87077; 87086; 87186; 93005; 93010; 96365-59; 99284-25; J2185

== ENCOUNTER → 2020-10-31 | Outpatient (CLI) | payer MEDICARE ==
[~2020-10-31] MED LIST changes: +Bactrim Ds Tab1 EACH PO
[2020-10-31 14:31] LABS: Source, Urine Catheter
[2020-10-31 15:41] LABS: Appearance, Urine Cloudy (Clear); Bilirubin, Urine Neg (Neg); Blood, Urine 5+ (Neg); Color, Urine Yellow (P-Yellow); Glucose Qualitative, Urine Neg (Neg); Ketones, Urine Neg (Neg); Leukocyte Esterase, Urine 3+ (Neg); Nitrite, Urine Pos (Neg); Protein, Urine 2+ (Neg); Specific Gravity, Urine 1.015 (1.003-1.022); Urobilinogen, Urine NORM (Normal)
[2020-10-31 16:13] LABS: Red Blood Cells, Urine TNTC /hpf (0-2); Squamous Epithelial Cells Rare /hpf (Few); White Blood Cells, Urine TNTC /hpf (0-5)
[2020-10-31 16:14] LABS: Amorphous Light (0-Heavy); Bacteria Many /hpf; Mucus Heavy (0-Heavy)
== END | disposition home or self-care (01) ==
LOC: LAB 14:29 → LAB SHORT 14:29
PROVIDERS: Internal Medicine
DX: N39.0 Urinary tract infection, site not specified (principal)
CPT/HCPCS: 81001; 87077; 87086; 87186

== ENCOUNTER → 2020-12-05 | Outpatient (CLI) | payer MEDICARE ==
[2020-12-05 10:17] LABS: Source, Urine Urostomy Bag
[2020-12-05 13:11] LABS: Appearance, Urine Cloudy (Clear); Bilirubin, Urine Neg (Neg); Blood, Urine 5+ (Neg); Color, Urine Yellow (P-Yellow); Glucose Qualitative, Urine Neg (Neg); Ketones, Urine Neg (Neg); Leukocyte Esterase, Urine 3+ (Neg); Nitrite, Urine Pos (Neg); Protein, Urine 3+ (Neg); Specific Gravity, Urine 1.015 (1.003-1.022); Urobilinogen, Urine NORM (Normal)
[2020-12-05 13:29] LABS: White Blood Cells, Urine TNTC /hpf (0-5)
[2020-12-05 13:30] LABS: Amorphous Mod (0-Heavy); Bacteria Many /hpf; Squamous Epithelial Cells Rare /hpf (Few)
== END | disposition home or self-care (01) ==
LOC: LAB 10:13 → LAB SHORT 10:13
PROVIDERS: Internal Medicine
DX: N39.0 Urinary tract infection, site not specified (principal)
CPT/HCPCS: 81001; 87077; 87086; 87186

== ENCOUNTER → 2021-01-09 | Outpatient (CLI) | payer MEDICARE ==
[2021-01-09 15:17] LABS: Source, Urine Clean Catch
[2021-01-09 18:03] LABS: Appearance, Urine Cloudy (Clear); Bilirubin, Urine Neg (Neg); Blood, Urine 5+ (Neg); Color, Urine Yellow (P-Yellow); Glucose Qualitative, Urine Neg (Neg); Ketones, Urine Neg (Neg); Leukocyte Esterase, Urine 3+ (Neg); Nitrite, Urine Pos (Neg); Protein, Urine 2+ (Neg); Specific Gravity, Urine 1.015 (1.003-1.022); Urobilinogen, Urine NORM (Normal)
[2021-01-09 18:22] LABS: Bacteria Many /hpf; Squamous Epithelial Cells Rare /hpf (Few); White Blood Cells, Urine 50-100 /hpf (0-5); Yeast/Fungi Urine Rare /hpf
== END | disposition home or self-care (01) ==
LOC: LAB 15:16 → LAB SHORT 15:16
PROVIDERS: Internal Medicine
DX: N39.0 Urinary tract infection, site not specified (principal)
CPT/HCPCS: 81001; 87077; 87086; 87186

== ENCOUNTER 2021-03-25 13:10 | Emergency (ER) | payer MEDICARE ==
[~2021-03-25] VITALS: Ht 185.4 cm; Wt 108.9 kg
[~2021-03-25 13:10] MED LIST changes: -ATOR40TA PO; -METOPROLOL SUCC25 MG PO; -PLAVIX75 MG PO
[2021-03-25] MEDS ORDERED: CLOBETASOL EMOL15 G1 (13:20)
[2021-03-25 13:51] LABS: BASOPHILS ABSOLUTE AUTO 0.03 K/mm3 (0.00-0.23); BASOPHILS PERCENT AUTO 0 % (0-2); EOSINOPHILS ABSOLUTE AUTO 0.03 K/mm3 (0.00-0.68); EOSINOPHILS PERCENT AUTO 0 % (0-6); Hematocrit 43.5 % (37.0-53.0); Hemoglobin 14.6 g/dL (13.5-17.5); IMMATURE GRAN ABSOLUTE AUTO 0.05 K/mm3 (0.00-0.10); IMMATURE GRAN PERCENT AUTO 0 % (0-1); LYMPHOCYTES ABSOLUTE AUTO 0.51 K/mm3 (0.84-5.20); LYMPHOCYTES PERCENT AUTO 4 % (21-46); MONOCYTES ABSOLUTE AUTO 0.54 K/mm3 (0.16-1.47); MONOCYTES PERCENT AUTO 4 % (4-13); Mean Corpuscular HGB 29.1 pg (26.0-34.0); Mean Corpuscular HGB Conc 33.6 g/dL (31.5-36.5); Mean Corpuscular Volume 87 fL (80-100); Mean Platelet Volume 10.1 fL (9.1-12.4); NEUTROPHILS ABSOLUTE AUTO 12.79 K/mm3 (1.96-9.15); NEUTROPHILS PERCENT AUTO 92 % (41-73); Platelet Count 234 K/mm3 (150-400); RDW Coefficient Variation 14.4 % (11.7-14.2); RDW Standard Deviation 45.8 fL (35.1-46.3); Red Blood Cell Count 5.01 M/mm3 (4.30-5.90); White Blood Cell Count 13.95 K/mm3 (4.00-11.30)
[2021-03-25 14:02] LABS: Alanine Aminotransfer (ALT/SGP 23 U/L (12-78); Albumin, Blood 3.4 g/dL (3.4-5.0); Albumin/Globulin Ratio 0.8 (0.8-1.8); Alk Phos 137 U/L (50-136); Anion Gap 6 mmol/L (6-16); Aspartate Aminotrans (AST/SGOT 21 U/L (12-37); Bilirubin, Total 0.6 mg/dL (0.1-1.0); Blood Urea Nitrogen 20 mg/dL (8-24); Bun/Creatinine Ratio 17.2 (12.0-20.0); CO2, Blood 27 mmol/L (21-32); Calcium, Blood 9.7 mg/dL (8.5-10.1); Chloride, Blood 106 mmol/L (98-108); Creatinine, Blood 1.16 mg/dL (0.60-1.20); Globulin, Blood 4.4 g/dL (2.2-4.0); Glomerular Filtration Rate >60 (60-); Glucose, Blood 119 mg/dL (70-99); Potassium, Blood 3.7 mmol/L (3.5-5.5); Sodium, Blood 139 mmol/L (136-145); Total Protein, Blood 7.8 g/dL (6.4-8.2)
[2021-03-25 14:21] LABS: Source, Urine Catheter
[2021-03-25 14:32] LABS: Appearance, Urine Clear (Clear); Bilirubin, Urine Neg (Neg); Blood, Urine 2+ (Neg); Color, Urine Yellow (P-Yellow); Glucose Qualitative, Urine Neg (Neg); Ketones, Urine Neg (Neg); Leukocyte Esterase, Urine 2+ (Neg); Nitrite, Urine Pos (Neg); Protein, Urine Neg (Neg); Urobilinogen, Urine NORM (Normal)
[2021-03-25 14:51] LABS: Bacteria Few /hpf; Mucus Light (0-Heavy); Squamous Epithelial Cells Rare /hpf (Few)
[2021-03-25] MEDS ORDERED: LEVFLO500 PO (15:31)
[2021-03-25] MEDS ORDERED: Percocet 5-3251 EACH PO (15:31)
[2021-03-25] MEDS ORDERED: ONDA4ODT MM (15:31)
[2021-03-26] MEDS ORDERED: Cyproheptadine H4 MG PO (19:30)
[2021-03-26] MEDS ORDERED: FLUT.05NI (19:32)
[2021-03-26] MEDS ORDERED: ALLEGRA ALLERG180 MG PO (19:32)
[2021-03-26] MEDS ORDERED: METOPROLOL SUCC25 MG PO (19:34)
[2021-03-26] MEDS ORDERED: ATOR40TA PO (19:35)
[2021-03-26] MEDS ORDERED: PLAVIX75 MG PO (19:35)
== END 2021-03-25 16:43 | disposition home or self-care (01) ==
LOC: ER 13:10
PROVIDERS: Physician Assistant
DX: N13.2 Hydronephrosis with renal and ureteral calculous obstruction (principal); Z88.0 Allergy status to penicillin; Z79.899 Other long term (current) drug therapy
CPT/HCPCS: 74176; 80053; 81001; 83690; 84484; 85025; 87077; 87086; 87186; 93005; 93010; 96365; 96375; 96376; 99284-25; J1956; J2405; J3010

== ENCOUNTER 2021-03-26 13:24 | Emergency (ER) | payer MEDICARE ==
[~2021-03-26] VITALS: Ht 185.4 cm; Wt 106.6 kg
[~2021-03-26 13:24] MED LIST changes: +CLOBETASOL EMOL15 G1; +LEVFLO500 PO; +ONDA4ODT MM; +Percocet 5-3251 EACH PO
[2021-03-26 17:10] LABS: Source, Urine Catheter
[2021-03-26 17:15] LABS: Appearance, Urine Hazy (Clear); Bilirubin, Urine Neg (Neg); Blood, Urine 5+ (Neg); Color, Urine Yellow (P-Yellow); Glucose Qualitative, Urine Neg (Neg); Ketones, Urine Neg (Neg); Leukocyte Esterase, Urine 3+ (Neg); Nitrite, Urine Pos (Neg); Protein, Urine 3+ (Neg); Specific Gravity, Urine 1.025 (1.003-1.022); Urobilinogen, Urine NORM (Normal)
[2021-03-26 17:38] LABS: Red Blood Cells, Urine 0-2 /hpf (0-2); Squamous Epithelial Cells Mod /hpf (Few); White Blood Cells, Urine 25-50 /hpf (0-5)
[2021-03-26 17:39] LABS: Bacteria Many /hpf
[2021-03-26 17:50] LABS: BASOPHILS ABSOLUTE AUTO 0.04 K/mm3 (0.00-0.23); BASOPHILS PERCENT AUTO 0 % (0-2); EOSINOPHILS PERCENT AUTO 0 % (0-6); Hematocrit 39.4 % (37.0-53.0); Hemoglobin 13.3 g/dL (13.5-17.5); IMMATURE GRAN ABSOLUTE AUTO 0.07 K/mm3 (0.00-0.10); IMMATURE GRAN PERCENT AUTO 0 % (0-1); LYMPHOCYTES ABSOLUTE AUTO 0.33 K/mm3 (0.84-5.20); LYMPHOCYTES PERCENT AUTO 2 % (21-46); MONOCYTES ABSOLUTE AUTO 0.85 K/mm3 (0.16-1.47); MONOCYTES PERCENT AUTO 5 % (4-13); Mean Corpuscular HGB 29.4 pg (26.0-34.0); Mean Corpuscular HGB Conc 33.8 g/dL (31.5-36.5); Mean Corpuscular Volume 87 fL (80-100); Mean Platelet Volume 10.1 fL (9.1-12.4); NEUTROPHILS ABSOLUTE AUTO 15.74 K/mm3 (1.96-9.15); NEUTROPHILS PERCENT AUTO 93 % (41-73); Platelet Count 168 K/mm3 (150-400); RDW Coefficient Variation 14.9 % (11.7-14.2); RDW Standard Deviation 47.9 fL (35.1-46.3); Red Blood Cell Count 4.53 M/mm3 (4.30-5.90); White Blood Cell Count 17.03 K/mm3 (4.00-11.30)
[2021-03-26 18:08] LABS: Bun/Creatinine Ratio 13.4 (12.0-20.0); Calcium, Blood 9.2 mg/dL (8.5-10.1); Creatinine, Blood 2.69 mg/dL (0.60-1.20); Potassium, Blood 4.2 mmol/L (3.5-5.5)
[2021-03-26] MEDS ORDERED: Cyproheptadine H4 MG PO (19:30)
[2021-03-26] MEDS ORDERED: ALLEGRA ALLERG180 MG PO (19:32)
[2021-03-26] MEDS ORDERED: FLUT.05NI (19:32)
[2021-03-26] MEDS ORDERED: METOPROLOL SUCC25 MG PO (19:34)
[2021-03-26] MEDS ORDERED: PLAVIX75 MG PO (19:35)
[2021-03-26] MEDS ORDERED: ATOR40TA PO (19:35)
[2021-03-26 20:50] LABS: Influenza A, PCR NEGATIVE (NEGATIVE); Influenza B, PCR NEGATIVE (NEGATIVE); Resp Syncytial Virus, PCR NEGATIVE (NEGATIVE); SARS-Cov-2 (COVID-19) PCR, MMC NEGATIVE (NEGATIVE)
== END 2021-03-26 22:43 | disposition short-term general hospital (02) ==
LOC: ER 13:24
PROVIDERS: Emergency Medicine
DX: N20.0 Calculus of kidney (principal); Z88.0 Allergy status to penicillin; Z79.899 Other long term (current) drug therapy
CPT/HCPCS: 0241U; 80048; 81001; 85025; 87077; 87086; 87186; 96365; 99285-25; A9270; J1956; J7030

== ENCOUNTER 2021-04-06 19:13 | Emergency (ER) | payer MEDICARE ==
[~2021-04-06] VITALS: Ht 185.4 cm; Wt 107.5 kg
[~2021-04-06 19:13] MED LIST changes: +ATOR40TA PO; +Cyproheptadine H4 MG PO; +FLUT.05NI; +METOPROLOL SUCC25 MG PO; +PLAVIX75 MG PO
[2021-04-06 19:48] LABS: Source, Urine Catheter
[2021-04-06 19:52] LABS: BASOPHILS ABSOLUTE AUTO 0.02 K/mm3 (0.00-0.23); BASOPHILS PERCENT AUTO 0 % (0-2); EOSINOPHILS ABSOLUTE AUTO 0.35 K/mm3 (0.00-0.68); EOSINOPHILS PERCENT AUTO 4 % (0-6); Hematocrit 32.3 % (37.0-53.0); Hemoglobin 10.7 g/dL (13.5-17.5); IMMATURE GRAN ABSOLUTE AUTO 0.09 K/mm3 (0.00-0.10); IMMATURE GRAN PERCENT AUTO 1 % (0-1); LYMPHOCYTES ABSOLUTE AUTO 0.76 K/mm3 (0.84-5.20); LYMPHOCYTES PERCENT AUTO 8 % (21-46); MONOCYTES ABSOLUTE AUTO 0.68 K/mm3 (0.16-1.47); MONOCYTES PERCENT AUTO 7 % (4-13); Mean Corpuscular HGB 28.7 pg (26.0-34.0); Mean Corpuscular HGB Conc 33.1 g/dL (31.5-36.5); Mean Corpuscular Volume 87 fL (80-100); Mean Platelet Volume 9.8 fL (9.1-12.4); NEUTROPHILS ABSOLUTE AUTO 7.87 K/mm3 (1.96-9.15); NEUTROPHILS PERCENT AUTO 81 % (41-73); Platelet Count 407 K/mm3 (150-400); RDW Coefficient Variation 15.1 % (11.7-14.2); RDW Standard Deviation 48.5 fL (35.1-46.3); Red Blood Cell Count 3.73 M/mm3 (4.30-5.90); White Blood Cell Count 9.77 K/mm3 (4.00-11.30)
[2021-04-06 19:54] LABS: Appearance, Urine Clear (Clear); Bilirubin, Urine Neg (Neg); Blood, Urine 5+ (Neg); Color, Urine Yellow (P-Yellow); Glucose Qualitative, Urine Neg (Neg); Ketones, Urine Neg (Neg); Leukocyte Esterase, Urine 2+ (Neg); Nitrite, Urine Neg (Neg); Protein, Urine 2+ (Neg); Urobilinogen, Urine NORM (Normal); pH, Urine 6.5 (5.0-8.0)
[2021-04-06 20:05] LABS: Alanine Aminotransfer (ALT/SGP 61 U/L (12-78); Albumin, Blood 1.6 g/dL (3.4-5.0); Albumin/Globulin Ratio 0.3 (0.8-1.8); Alk Phos 125 U/L (50-136); Anion Gap 5 mmol/L (6-16); Aspartate Aminotrans (AST/SGOT 47 U/L (12-37); Bilirubin, Total 0.4 mg/dL (0.1-1.0); Blood Urea Nitrogen 24 mg/dL (8-24); Bun/Creatinine Ratio 27.4 (12.0-20.0); CO2, Blood 25 mmol/L (21-32); Calcium, Blood 8.6 mg/dL (8.5-10.1); Chloride, Blood 103 mmol/L (98-108); Creatinine, Blood 0.88 mg/dL (0.60-1.20); Globulin, Blood 4.9 g/dL (2.2-4.0); Glomerular Filtration Rate >60 (60-); Glucose, Blood 136 mg/dL (70-99); Potassium, Blood 4.2 mmol/L (3.5-5.5); Red Blood Cells, Urine 25-50 /hpf (0-2); Sodium, Blood 133 mmol/L (136-145); Total Protein, Blood 6.5 g/dL (6.4-8.2)
[2021-04-06 20:07] LABS: Bacteria Rare /hpf; Squamous Epithelial Cells Rare /hpf (Few)
== END 2021-04-06 23:15 | disposition home or self-care (01) ==
LOC: ER 19:13
PROVIDERS: Physician Assistant
DX: R10.31 Right lower quadrant pain (principal); Z88.0 Allergy status to penicillin; Z79.899 Other long term (current) drug therapy
CPT/HCPCS: 74177; 80053; 81001; 83690; 85025; 87086; 96374; 99284-25; J3010; J7030; Q9967

== ENCOUNTER 2021-11-24 10:31 | Inpatient (IN) | payer MEDICARE ==
[~2021-11-24] VITALS: Ht 185.4 cm; Wt 98.4 kg
[2021-11-24 11:26] LABS: BASOPHILS ABSOLUTE AUTO 0.03 K/mm3 (0.00-0.23); BASOPHILS PERCENT AUTO 0 % (0-2); EOSINOPHILS ABSOLUTE AUTO 0.02 K/mm3 (0.00-0.68); EOSINOPHILS PERCENT AUTO 0 % (0-6); Hematocrit 36.8 % (37.0-53.0); Hemoglobin 11.8 g/dL (13.5-17.5); IMMATURE GRAN ABSOLUTE AUTO 0.04 K/mm3 (0.00-0.10); IMMATURE GRAN PERCENT AUTO 0 % (0-1); LYMPHOCYTES ABSOLUTE AUTO 0.64 K/mm3 (0.84-5.20); LYMPHOCYTES PERCENT AUTO 6 % (21-46); MONOCYTES ABSOLUTE AUTO 0.53 K/mm3 (0.16-1.47); MONOCYTES PERCENT AUTO 5 % (4-13); Mean Corpuscular HGB 27.6 pg (26.0-34.0); Mean Corpuscular HGB Conc 32.1 g/dL (31.5-36.5); Mean Corpuscular Volume 86 fL (80-100); Mean Platelet Volume 9.3 fL (9.1-12.4); NEUTROPHILS ABSOLUTE AUTO 9.68 K/mm3 (1.96-9.15); NEUTROPHILS PERCENT AUTO 88 % (41-73); Platelet Count 168 K/mm3 (150-400); RDW Coefficient Variation 18.1 % (11.7-14.2); Red Blood Cell Count 4.27 M/mm3 (4.30-5.90); White Blood Cell Count 10.94 K/mm3 (4.00-11.30)
[2021-11-24] MEDS ORDERED: ASPI81CH PO (11:31)
[2021-11-24] MEDS ORDERED: GABA400 PO (11:32)
[2021-11-24] MEDS ORDERED: LOSA25 PO (11:32)
[2021-11-24] MEDS ORDERED: HYDHCL25 PO (11:33)
[2021-11-24] MEDS ORDERED: GABA100 PO (11:34)
[2021-11-24] MEDS ORDERED: METO25ER PO (11:34)
[2021-11-24 11:41] LABS: Albumin, Blood 2.8 g/dL (3.4-5.0); Albumin/Globulin Ratio 0.6 (0.8-1.8); Bilirubin, Total 0.7 mg/dL (0.1-1.0); Bun/Creatinine Ratio 18.2 (12.0-20.0); Calcium, Blood 9.2 mg/dL (8.5-10.1); Creatinine, Blood 1.21 mg/dL (0.60-1.20); Globulin, Blood 4.5 g/dL (2.2-4.0); Potassium, Blood 3.8 mmol/L (3.5-5.5); Total Protein, Blood 7.3 g/dL (6.4-8.2)
[2021-11-24] MEDS ORDERED: OXYC5 PO (15:16)
--- NOTE | 2021-11-24 18:08 | NUR ---
ADMIT FROM ED DURING SHIFT. SLID TO BED FROM [facility] WITH SLIDER SHEET AND ASSITANCE. A/A/OX3 WITH INTERMITANT FORGETFULNESS. VSS, MEDICATED WITH ABX PER EMAR. CHRONIC RHOADES ON ADMIT. PT STATES HAD CHANGED RECENTLY AT UROLOGIST OFFICE. MULTIPLE ATTEMPTS TO CHANGE RHOADES PER HOSPTIAL PROTOCOL, DENIES DESPITE DISCUSSING REASONS. PT STATES HE GETS INFECTIONS WHEN ANYONE BESIDES THE UROLOGY CLINIC PLACES. MRI SCREENING IN CHART. RECORDS REQUESTED FROM [facility] BY ER REGARDING VALVE REPLACEMENT. TYPE OF HEART VALVE UNKNOWN BY PT OR BY [facility]. HX OF MS, MOVES SELF IN BED WITH BEING WHEELCHAIR BOUND AT BASELINE. WILL CONTINUE TO MONITOR AND TREAT UNTIL CHANGE OF SHIFT.
[2021-11-25 04:19] LABS: Hematocrit 36.7 % (37.0-53.0); Hemoglobin 11.6 g/dL (13.5-17.5); Mean Corpuscular HGB 27.3 pg (26.0-34.0); Mean Corpuscular HGB Conc 31.6 g/dL (31.5-36.5); Mean Corpuscular Volume 86 fL (80-100); Mean Platelet Volume 10.1 fL (9.1-12.4); Platelet Count 150 K/mm3 (150-400); RDW Coefficient Variation 17.9 % (11.7-14.2); RDW Standard Deviation 57.1 fL (35.1-46.3); Red Blood Cell Count 4.25 M/mm3 (4.30-5.90); White Blood Cell Count 8.37 K/mm3 (4.00-11.30)
[2021-11-25 04:41] LABS: Bun/Creatinine Ratio 21.5 (12.0-20.0); Calcium, Blood 9.1 mg/dL (8.5-10.1); Creatinine, Blood 1.21 mg/dL (0.60-1.20); Potassium, Blood 4.2 mmol/L (3.5-5.5)
--- NOTE | 2021-11-25 06:51 | NUR ---
NOC SHIFT SUMMARY PT SLEPT WELL OVERNIGHT, COMPLAINTS OF BILATERAL LEG PAIN EARLY IN SHIFT RELIEVED BY AVAILABLE PRNS (SEE EMAR FOR DETAILS). VSS W/EXCEPTION OF TMAX OF 101.7 - PO TYLENOL GIVEN WITH DECREASE TO 97F. SR ON TELEMETRY WITH OCCASIONAL PVCS. PT W/CONTRACTURES IN ALL EXTREMITIES AND DECREASED ROM/CONSTRUCTION FRAMER. PT REFUSING REMOVAL AND REPLACEMENT OF RHOADES CATHETER AND SOME Q2 TURNS. WILL CONTINUE TO MONITOR AND PASS ON TO DAY RN
[2021-11-25 14:36] LABS: Source, Urine Foley catheter
[2021-11-25 14:51] LABS: Appearance, Urine Cloudy (Clear); Bilirubin, Urine Neg (Neg); Blood, Urine 5+ (Neg); Color, Urine Amber (P-Yellow); Glucose Qualitative, Urine Neg (Neg); Ketones, Urine Neg (Neg); Leukocyte Esterase, Urine 2+ (Neg); Nitrite, Urine Pos (Neg); Protein, Urine 2+ (Neg); Urobilinogen, Urine NORM (Normal)
[2021-11-25 14:59] LABS: Bacteria Many /hpf; Red Blood Cells, Urine TNTC /hpf (0-2); Squamous Epithelial Cells Rare /hpf (Few); White Blood Cells, Urine 25-50 /hpf (0-5)
[2021-11-25 15:00] LABS: Granular Casts 0-2 /lpf (0); Hyaline Casts 0-2 /lpf (0-2); Mucus Light (0-Heavy)
--- NOTE | 2021-11-25 16:16 | NUR ---
LATEX ALLERGY. (RHOADES LATEX FREE) PATIENT CAME TO THE MEDICAL FLOOR FROM PCU-4 THIS AFTERNOON. HE IS ALERT AND ORIENTATED. COGNITION APPEARS IMPAIRED. HE DOESN'T APPEAR TO BE IN ACUTE DISTRESS, BUT WAS ADMITTED FOR HYPOTENSION AND IS HAVING BLOOD CULTURES. HISTORY OF GRAM NEGATIVE BACILLI. HE HAS A RHOADES CATH (CHRONIC) AND THE MEATUS OF HIS PENIS IS SPLIT WITH SOME DRAINAGE PRESENT ON THE RHOADES TUBING. HISTORY OF CHRONIC UTI'S. HE DENIES PAIN WITH RHOADES. PATIENT HAS A HISTORY OF MS. HE IS WHEELCHAIR BOUND AND DOES NOT AMBULATE. HE HAS PAIN IN THE LOWER SPINE WITH PRN OXY TO RELIEVE. 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 [facility] IS SUPPOSED TO BE SENDING RECORDS THAT HAVE ALREADY BEEN REQUESTED. 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 HE CAME TO THE FLOOR WITH NS RUNNING AT 100 X 1 BAG. IT IS HALF COMPMLETE AT THIS TIME. HE HAS VANCO AND MERROM IV BOTH ORDERED AT 1600. THE MERROM IS RUNNING NOW. PATIENT'S IV IS IN THE RIGHT UPPER ARM. HE IS NOT ON 02. HE WAS ON TELE IN PCU, BUT IS NO LONGER.
--- NOTE | 2021-11-25 16:18 | NUR ---
REPORT GIVEN TO MEDICAL FLOOR NURSE FOR IN HOUSE TRANSFER. A/A/OX4, VSS, RHOADES CATH IN PLACE DRAINING TO GRAVITY. NO DISTRESS UPON TRANSFER.
[2021-11-26 03:36] LABS: Vancomycin, Trough 28.9 ug/mL (5.0-10.0)
[2021-11-26 04:21] LABS: Creatinine, Blood 1.04 mg/dL (0.60-1.20)
--- NOTE | 2021-11-26 05:42 | NUR ---
SHIFT SUMMARY: PT IS ALERT AND ORIENTED. PT IS CALM AND COOPERATIVE WITH CARE. PT CALLS APPROPRIATELY. PT HAS A HX OF MS AND IS W/C BOUND AT BASELINE, NOT OUT OF BED OVERNIGHT. PT DENIES PAIN, NAUSEA, VOMITING AND SOB. NO ACUTE CHANGES OR COMPLICATIONS THIS SHIFT. BED IN LOW POSITION, CALL LIGHT WITHIN REACH. WILL REPORT TO DAY NURSE.
--- NOTE | 2021-11-26 19:34 | NUR ---
END OF SHIFT SUMMARY: PATIENT REPORTED PAIN ONE TIME AFTER HEAD OF THE BED WAS ELEVATED TOO FAR, EXACERBATING HIS BACK PAIN. PRN PAIN MEDICATIONS CONTROLLED THIS PAIN. PATIENT DENIED PAIN FOR THE REST OF THE SHIFT TO THE RN. PATIENT ABLE TO HELP [facility] REPOSITIONING WITHOUT PAIN. MESSAGE LEFT AT [facility] FOR UPDATE ON PENDING RECORDS. [facility] REVIEWED RECORDS, BUT REPORTED THAT THEY DO NOT HAVE DOCUMENTATION OF THE PATIENT'S HEART VALVE REPLACEMENT. NO [facility] ON [facility] TODAY. MRI UNABLE TO BE COMPLETED. DR. DELGADILLO AWARE.
[2021-11-27 05:38] LABS: Hematocrit 34.6 % (37.0-53.0); Mean Corpuscular HGB 26.8 pg (26.0-34.0); Mean Corpuscular HGB Conc 31.8 g/dL (31.5-36.5); Mean Corpuscular Volume 84 fL (80-100); Mean Platelet Volume 9.3 fL (9.1-12.4); Platelet Count 181 K/mm3 (150-400); RDW Coefficient Variation 17.3 % (11.7-14.2); RDW Standard Deviation 54.2 fL (35.1-46.3); Red Blood Cell Count 4.11 M/mm3 (4.30-5.90); White Blood Cell Count 3.68 K/mm3 (4.00-11.30)
--- NOTE | 2021-11-27 05:43 | NUR ---
GEOLOGY PROFESSOR SUMMARY ADMITTED FOR UTI. HE IS A DNR. THE PATIENT LIVES AT THE EXTENDED SIDE AT [facility]. HE HAS A CHRONIC RHOADES THAT IS PATENT. HE IS ALERT AND ORIENTED X4. HX OF MS WITH MORE WEAKNESS ON THE LEFT SIDE. HE IS AWAITING AN MRI TO EVALUATE FOR OSTEOMYELITIS OF L4 AND L5 DUE TO INCREASING BACK PAIN BUT STAFF UNABLE TO GET RECORDS FROM [facility] THIS WEEKEND. RECEIVING IV ABX FOR UTI. HE IS ON ROOM AIR. NO TELE.
[2021-11-27 06:02] LABS: Albumin, Blood 2.3 g/dL (3.4-5.0); Anion Gap 5 mmol/L (6-16); Blood Urea Nitrogen 21 mg/dL (8-24); Bun/Creatinine Ratio 19.8 (12.0-20.0); CO2, Blood 29 mmol/L (21-32); Calcium, Blood 9.1 mg/dL (8.5-10.1); Chloride, Blood 104 mmol/L (98-108); Creatinine, Blood 1.06 mg/dL (0.60-1.20); Glomerular Filtration Rate 71 (60-); Glucose, Blood 99 mg/dL (70-99); Phosphorus, Blood 2.6 mg/dL (2.5-4.9); Potassium, Blood 3.7 mmol/L (3.5-5.5); Sodium, Blood 138 mmol/L (136-145)
[2021-11-27 14:27] LABS: Vancomycin, Trough 20.7 ug/mL (5.0-10.0)
--- NOTE | 2021-11-27 16:04 | NUR ---
Upon receiving a spiritual care referral, I visit pt. Pt is lying in bed and alert. Pt immediately shares about his education, his Christain eduardo, and his family unit complications. He is tearful at times and he talks about his emotional pain. He also asks theological questions to which I give some insights. I normalize his experience, encourage self care and provide therapeutic listening and prayer. Pt responds well and shows signs of an elevated mood and increased peace about his family situation.
--- NOTE | 2021-11-27 18:44 | NUR ---
SHIFT SUMMARY PT A&O X 4. VSS. PT WENT DOWN FOR MRI THIS AFTERNOON AT 1500. HE HAS DENIED PAIN OR DISCOMFORT THIS SHIFT. PT RE-POSITIONED IN BED WITH PILLOWS Q 2HRS. NEW PIV STARTED IN HIS R FA WITH A 20 G CATHETER, 1 ATTEMPT. OLD PIV DC'D WITH CATH TIP INTACT, SITE WNL's, NO REDNESS OR SWELLING.
[2021-11-27 23:16] LABS: Vancomycin, Random 17.2 ug/mL
--- NOTE | 2021-11-28 06:43 | NUR ---
SHIFT SUMMARY Assumed care of pt at 1900. A/Ox4. Bedrest. Reports pain 5/10 in low back, assist with reposition and medicated per emar x1 with good relief. Maintains over 95% on RA. LS clear on top and dim at bases. Nonproductive cough. Chronic richards draining to gravity yellow/clear urine. SBP went down into the 70's with a MAP of 63. Order obtained for 500mL bolus. Repeat shows SBP low 100's and MAP 79. Will report to dayshift RN.
[2021-11-28 08:40] LABS: BASOPHILS ABSOLUTE AUTO 0.03 K/mm3 (0.00-0.23); BASOPHILS PERCENT AUTO 1 % (0-2); EOSINOPHILS ABSOLUTE AUTO 0.49 K/mm3 (0.00-0.68); EOSINOPHILS PERCENT AUTO 10 % (0-6); Hemoglobin 11.8 g/dL (13.5-17.5); IMMATURE GRAN ABSOLUTE AUTO 0.02 K/mm3 (0.00-0.10); IMMATURE GRAN PERCENT AUTO 0 % (0-1); LYMPHOCYTES ABSOLUTE AUTO 0.92 K/mm3 (0.84-5.20); LYMPHOCYTES PERCENT AUTO 18 % (21-46); MONOCYTES ABSOLUTE AUTO 0.71 K/mm3 (0.16-1.47); MONOCYTES PERCENT AUTO 14 % (4-13); Mean Corpuscular HGB 26.7 pg (26.0-34.0); Mean Corpuscular HGB Conc 31.9 g/dL (31.5-36.5); Mean Corpuscular Volume 84 fL (80-100); Mean Platelet Volume 9.5 fL (9.1-12.4); NEUTROPHILS ABSOLUTE AUTO 2.85 K/mm3 (1.96-9.15); NEUTROPHILS PERCENT AUTO 57 % (41-73); Platelet Count 209 K/mm3 (150-400); RDW Coefficient Variation 17.2 % (11.7-14.2); RDW Standard Deviation 53.5 fL (35.1-46.3); Red Blood Cell Count 4.42 M/mm3 (4.30-5.90); White Blood Cell Count 5.02 K/mm3 (4.00-11.30)
[2021-11-28 08:52] LABS: Albumin, Blood 2.4 g/dL (3.4-5.0); Anion Gap 7 mmol/L (6-16); Blood Urea Nitrogen 20 mg/dL (8-24); CO2, Blood 27 mmol/L (21-32); Calcium, Blood 9.3 mg/dL (8.5-10.1); Chloride, Blood 105 mmol/L (98-108); Glomerular Filtration Rate 77 (60-); Glucose, Blood 101 mg/dL (70-99); Phosphorus, Blood 2.3 mg/dL (2.5-4.9); Potassium, Blood 3.5 mmol/L (3.5-5.5); Sodium, Blood 139 mmol/L (136-145)
--- NOTE | 2021-11-28 16:08 | NUR ---
Patient tells me about his belief that he does not have Multple Sclerosis, about his world as he lives at [facility] and about his eduardo journey. He tells me that his spouse does not want him back into their home and that is concerned about how he will have the funds to pay for further treatment at a SNF. He is tearful at times and tells me that his eduardo God is his anchor and his deepest source of valorie. He is easily encouraged by conversation centered around God and his goodness. I provide a calming presence, therapeutic listening and prayer. Pt responds well and shows signs of being encouraged in his eduardo. I will continue to remain available to patient and family.
--- NOTE | 2021-11-28 17:46 | NUR ---
SHIFT SUMMARY- PT ALERT AND ORIENTED. RHOADES CATH IS CHRONIC AND IS IN PLACE PATENT AND DRAINING. PT HAS HAD NO C/O PAIN T/O THE DAY. THIS MORNING HE C/O SOME ITCHING ON HIS RIGHT BUTTOCK, THE AREA HAS SOME RED SLIGHTLY RAISED BUMPS ON IT AND THE PT HAD SCRATCHED AN AREA OPEN. CAME AND LOOKED, NEW ORDER FOR BENADRYL CREAM RECIEVED. OFFERED TO PT AND HE DECLINED AT THAT TIME. SBP WAS LESS THAN 100 THIS AM METOPROLOL WAS HELD MD AWARE. PT HAS A CT GUIDED BIOPSY ORDERED FOR TOMORROW MORNING, LABS TO BE DRAWN BEFORE. PT IS AWARE. PT CURRENTLY IN BED, CALL LIGHT IN REACH NO S&S OF DISTRESS NOTED ON ROOM AIR. WILL CTM AND PASS ON TO NIGHT RN IN BEDSIDE REPORT.
[2021-11-29 05:15] LABS: International Normalized Ratio 1.1; Prothrombin Time Results 11.5 Sec (9.7-11.5)
[2021-11-29 05:20] LABS: Vancomycin, Random 19.3 ug/mL
--- NOTE | 2021-11-29 17:21 | NUR ---
SHIFT SUMMARY NO ACUTE EVENTS. PTN PLEASANT, A&O. TIRED EARLIER IN SHIFT AND WANTED TO REST, AWAKE FOR REMAINDER SHIFT. HX OF MS WITH WEAKNESS, CURRENTLY BEDBOUND. NO COMPLAINTS OF PAIN THIS SHIFT. PTN REPORTS IMPROVEMENT TO GLUTEAL FOLD, NO ITCHING AND NO MEDICATION REQUESTED. SPINAL BIOPSY AND CULTURE DONE THIS SHIFT. ANTIBIOTIC THERAPY TO BE CONTINUED FOR NOW.
--- NOTE | 2021-11-29 22:28 | NUR ---
POWERGLIDE PLACED BY CHARGE NURSE. PT TOLERATED IT WELL. DENIED PAIN. DENIED LOSS OF FEELING. VOICED DIFFICULTY IN HEARING. CALL LIGHT IN REACH.
--- NOTE | 2021-11-30 05:10 | NUR ---
DIRECTOR OF FIELD COORDINATION SUMMARY POWERGLIDE PLACED IN LEFT ARM PER CHARGE NURSE. TOLERATED WELL. IV ANTIBIOTICS ADMINISTERED ORDERED - SEE MAR FOR DETAILS. HAS BEEN RESTING QUIETLY WITH FEW INTERRUPTIONS SINCE. CHRONIC RHOADES DRAINING. SEE MAR FOR WHEN MEDICATED FOR BACK PAIN. CALL LIGHT IN REACH.
[2021-11-30 05:23] LABS: Vancomycin, Random 12.6 ug/mL
[2021-11-30 08:35] LABS: Hematocrit 34.7 % (37.0-53.0); Hemoglobin 11.1 g/dL (13.5-17.5); Mean Corpuscular HGB 26.9 pg (26.0-34.0); Mean Corpuscular Volume 84 fL (80-100); Platelet Count 270 K/mm3 (150-400); RDW Coefficient Variation 17.3 % (11.7-14.2); RDW Standard Deviation 53.4 fL (35.1-46.3); Red Blood Cell Count 4.13 M/mm3 (4.30-5.90); White Blood Cell Count 6.15 K/mm3 (4.00-11.30)
[2021-11-30 08:43] LABS: Albumin, Blood 2.3 g/dL (3.4-5.0); Anion Gap 6 mmol/L (6-16); Blood Urea Nitrogen 22 mg/dL (8-24); Bun/Creatinine Ratio 19.1 (12.0-20.0); CO2, Blood 25 mmol/L (21-32); Calcium, Blood 9.1 mg/dL (8.5-10.1); Chloride, Blood 107 mmol/L (98-108); Creatinine, Blood 1.15 mg/dL (0.60-1.20); Glomerular Filtration Rate 65 (60-); Glucose, Blood 103 mg/dL (70-99); Phosphorus, Blood 2.5 mg/dL (2.5-4.9); Potassium, Blood 3.5 mmol/L (3.5-5.5); Sodium, Blood 138 mmol/L (136-145)
--- NOTE | 2021-11-30 17:27 | NUR ---
PATIENT HAD A GOOD SHIFT WITH NO COMPLAINT OF PAIN OR ANY OTHER MEDICAL. ABX RAN SCHEDULED, WITH A CHANGE TO THE VANCO DOSE THIS AM. PATIENT HAD A BM, ATE BREAKFAST,A LITTLE LUNCH AND IS IN A GOOD MOOD. AN ORDER FOR A PICC LINE WAS PLACED, BUT PLACEMENT OF THE LINE MAY NOT OCCUR UNTIL TOMORROW.
[2021-12-01 04:55] LABS: Hematocrit 34.6 % (37.0-53.0); Hemoglobin 11.3 g/dL (13.5-17.5); Mean Corpuscular HGB 26.9 pg (26.0-34.0); Mean Corpuscular HGB Conc 32.7 g/dL (31.5-36.5); Mean Corpuscular Volume 82 fL (80-100); Mean Platelet Volume 9.5 fL (9.1-12.4); Platelet Count 293 K/mm3 (150-400); RDW Coefficient Variation 17.1 % (11.7-14.2); RDW Standard Deviation 51.3 fL (35.1-46.3); White Blood Cell Count 7.67 K/mm3 (4.00-11.30)
[2021-12-01 05:16] LABS: Albumin, Blood 2.4 g/dL (3.4-5.0); Anion Gap 6 mmol/L (6-16); Blood Urea Nitrogen 25 mg/dL (8-24); Bun/Creatinine Ratio 20.2 (12.0-20.0); CO2, Blood 25 mmol/L (21-32); Calcium, Blood 9.4 mg/dL (8.5-10.1); Chloride, Blood 109 mmol/L (98-108); Creatinine, Blood 1.24 mg/dL (0.60-1.20); Glomerular Filtration Rate 59 (60-); Glucose, Blood 99 mg/dL (70-99); Phosphorus, Blood 2.7 mg/dL (2.5-4.9); Potassium, Blood 3.4 mmol/L (3.5-5.5); Sodium, Blood 140 mmol/L (136-145); Vancomycin, Random 15.7 ug/mL
--- NOTE | 2021-12-01 06:12 | NUR ---
SHIFT SUMMARY: PATIENT REPORTS DISCOMFORT IN PETER, POWERGLIDE IS FLUSHING EASILY AND HAS A GOOD BLOOD RETURN. VSS. PATIENT REQUESTED SLEEP AIDE, ATARAX PRN WAS GIVEN WITH POOR EFFECT. DR CARLTON WAS CALLED AND MELATONIN WAS ORDERED AND GIVEN WITH FAIR EFFECT. VERONA IS PATENT FOR A PALE YELLOW URINE.
--- NOTE | 2021-12-01 17:43 | NUR ---
SHIFT SUMMARY NO ACUTE CHANGES DURING SHIFT. PT ALERT AND ORIENTED, FOLLOWS COMMANDS. RHOADES IN PLACE, DRAINING TO GRAVITY. PRN PAIN MEDICATION ADMINISTERED, WILL MONITOR EFFECTIVENESS. ELECTROLYTE REPLACEMENT COMPLETED. PENDING PICC LINE PLACEMENT FOR [facility] ABX TREATMENT. WILL CONTINUE TO MONITOR.
--- NOTE | 2021-12-02 04:23 | NUR ---
SHIFT SUMMARY PATIENT HAD NO ACUTE CHANGES. AXOX 4 AND BEDREST. HX OF M.S. W/C BOUND. POWERGLIDE PETER INTACT. IV ABX INFUSED. CHRONIC RHOADES PATENT AND DRAINING TO GRAVITY. VSS/AFEBRILE. DENIES PAIN, SOB, AND N/V. PRN AMBIEN 5 MG GIVEN FOR INSOMNIA. TYLENOL 650 MG GIVEN FOR PETER PAIN. COOPERATIVE WITH CARE. CALL LIGHT IN REACH. BED IN LOWEST POSITION. WILL CONTINUE TO MONITOR UNTIL DAY SHIFT NURSE ASSUMES CARE.
[2021-12-02 06:18] LABS: Vancomycin, Random 17.8 ug/mL
--- NOTE | 2021-12-02 13:46 | NUR ---
SHIFT SUMMARY PT RESTING QUIETLY AT START OF SHIFT. WOKE EASILY FOR CARE. PLEASANT AND CO-OP. NO C/O. ABLE TO FEED HIMSELF. CHRONIC RHOADES TO GRAVITY; PATENT. CALLED FOR ASSIST TO BEDPAN FOR BM; LOOSE/SOFT STOOL. PT ABLE TO ROLL SOME ON HIS OWN. NO C/O PAIN. WAITING FOR D/C PLANNING BACK TO R/H. CALL LT IN REACH.
--- NOTE | 2021-12-03 04:58 | NUR ---
SHIFT SUMMARY PATIENT HAD NO ACUTE CHANGES. AXOX 4 AND BEDREST. POWERGLIDE PETER INTACT. IV ABX INFUSED. CHRONIC RHOADES PATENT AND DRAINING TO GRAVITY. REPORTED INSOMNIA AND PO SINEWUEN 10 MG GIVEN PER EMAR. DENIES PAIN, SOB, AND N/V. VSS/AFEBRILE. COOPERATIVE WITH CARE. CALL LIGHT IN REACH. BED IN LOWEST POSITION. WILL CONTINUE TO MONITOR UNTIL DAY SHIFT NURSE ASSUMES CARE.
[2021-12-03 05:57] LABS: Vancomycin, Random 18.7 ug/mL
[2021-12-03 11:10] LABS: Influenza A, PCR NEGATIVE (NEGATIVE); Influenza B, PCR NEGATIVE (NEGATIVE); Resp Syncytial Virus, PCR NEGATIVE (NEGATIVE); SARS-Cov-2 (COVID-19) PCR, MMC NEGATIVE (NEGATIVE)
--- NOTE | 2021-12-03 17:45 | NUR ---
SHIFT SUMMARY PT ALERT AND ORIENTED, FOLLOWS COMMANDS. PT C/O ABD PAIN, CT ABD ORDERED BY MD. PT PENDING PICC PLACEMENT FOR LONGTERM ABX. PLAN TO DISCHARGE TOMORROW AT 1100 FOLLOWING PICC PLACEMENT BACK TO [facility]. RHOADES IN PLACE, DRAINING TO GRAVITY. WILL CONTINUE TO MONITOR.
--- NOTE | 2021-12-04 05:11 | NUR ---
SHIFT SUMMARY A/OX4, BEDREST/LIFT. DENIES PAIN OR SOB. CHRONIC RHOADES PATENT AND DRAINING. VSS, NO ACUTE CHANGES AT THIS TIME. BED IN LOWEST POSITION WITH CALL LIGHT IN REACH. WILL CONTINUE TO MONITOR AND REPORT TO ONCOMING RN.
[2021-12-04 05:44] LABS: Vancomycin, Random 18.8 ug/mL
[2021-12-04] MEDS ORDERED: VISBIOME 112.51 EACH PO (07:42)
[2021-12-04] MEDS ORDERED: ERTAPENEM1 G6 IV (07:44)
--- NOTE | 2021-12-04 11:24 | NUR ---
DISCHARGE SUMMARY POWER GLIDE REMOVED PRIOR TO DISCHARGE. PT SENT BY AMBULANCE TRANSPORT ON [facility] TO [facility] WITH CHRONIC RHOADES AND PICC LINE INTACT. PT TO RECEIVE OUTPATIENT ABX THERAPY. RX SENT WITH PT IN PACKET FOR [facility]. REPORT CALLED TO [facility]. PERSONAL BELONGINGS TRANSPORTED ALONG WITH PT.
== END 2021-12-04 11:11 | DRG 500 ==
LOC: ER 10:31 → PCU 12:49 → MEDS 12:49 → PCU 14:05 → MEDS 11-25 15:07
PROVIDERS: Emergency Medicine; ADMIT Internal Medicine
PROC: 0K9N3ZX Drainage of Right Hip Muscle, Percutaneous Approach, Diagnostic (ICD-10-PCS; principal; 2021-11-29)
PROC: 02HV33Z Insertion of Infusion Device into Superior Vena Cava, Percutaneous Approach (ICD-10-PCS; 2021-12-04)
DX: M46.26 Osteomyelitis of vertebra, lumbar region (principal); K68.12 Psoas muscle abscess; R53.2 Functional quadriplegia; R78.81 Bacteremia; Z16.12 Extended spectrum beta lactamase (ESBL) resistance; Z20.822 Contact with and (suspected) exposure to COVID-19; Z66 Do not resuscitate; M46.36 Infection of intervertebral disc (pyogenic), lumbar region; Z79.82 Long term (current) use of aspirin; N31.9 Neuromuscular dysfunction of bladder, unspecified; E87.6 Hypokalemia; G47.00 Insomnia, unspecified; B96.20 Unspecified Escherichia coli [E. coli] as the cause of diseases classified elsewhere; R10.9 Unspecified abdominal pain; I12.9 Hypertensive chronic kidney disease with stage 1 through stage 4 chronic kidney disease, or unspecified chronic kidney disease; Z96.0 Presence of urogenital implants; N18.30 Chronic kidney disease, stage 3 unspecified; E78.5 Hyperlipidemia, unspecified; G35 Multiple sclerosis; Z79.899 Other long term (current) drug therapy; Z88.0 Allergy status to penicillin; Z87.442 Personal history of urinary calculi; G89.29 Other chronic pain; Z90.89 Acquired absence of other organs; Z95.2 Presence of prosthetic heart valve; Z99.3 Dependence on wheelchair; Z98.890 Other specified postprocedural states
CPT/HCPCS: 0241U; 10030; 36415; 71045; 72158; 74176; 77012; 80048; 80053; 80069; 80202; 81001; 82565; 84145; 85025; 85027; 85610; 85651; 85730; 86140; 87040; 87070; 87075; 87077; 87086; 87186; 87205; 88108; 88305; 93005; 93010; 93306; 99284-25; A9270; A9579; J0744; J1650; J2185; J2405; J3370; J7030; J7040; J7060

== ENCOUNTER 2022-01-22 18:00 | Inpatient (IN) | payer MEDICARE ==
[~2022-01-22] VITALS: Ht 185.4 cm; Wt 99.2 kg
[~2022-01-22 18:00] MED LIST changes: +ASPI81CH PO; +ERTAPENEM1 G6 IV; +GABA100 PO; +GABA400 PO; +METO25ER PO; +OXYC5 PO; +VISBIOME 112.51 EACH PO
[2022-01-22] MEDS ORDERED: ACET325 PO (18:57)
[2022-01-22 19:22] LABS: BASOPHILS ABSOLUTE AUTO 0.03 K/mm3 (0.00-0.23); BASOPHILS PERCENT AUTO 0 % (0-2); EOSINOPHILS ABSOLUTE AUTO 0.01 K/mm3 (0.00-0.68); EOSINOPHILS PERCENT AUTO 0 % (0-6); Hematocrit 34.6 % (37.0-53.0); Hemoglobin 11.3 g/dL (13.5-17.5); IMMATURE GRAN ABSOLUTE AUTO 0.05 K/mm3 (0.00-0.10); IMMATURE GRAN PERCENT AUTO 0 % (0-1); LYMPHOCYTES ABSOLUTE AUTO 0.94 K/mm3 (0.84-5.20); LYMPHOCYTES PERCENT AUTO 8 % (21-46); MONOCYTES ABSOLUTE AUTO 0.75 K/mm3 (0.16-1.47); MONOCYTES PERCENT AUTO 6 % (4-13); Mean Corpuscular HGB 26.7 pg (26.0-34.0); Mean Corpuscular HGB Conc 32.7 g/dL (31.5-36.5); Mean Corpuscular Volume 82 fL (80-100); Mean Platelet Volume 9.6 fL (9.1-12.4); NEUTROPHILS PERCENT AUTO 86 % (41-73); Platelet Count 169 K/mm3 (150-400); RDW Coefficient Variation 16.8 % (11.7-14.2); RDW Standard Deviation 49.7 fL (35.1-46.3); Red Blood Cell Count 4.24 M/mm3 (4.30-5.90); White Blood Cell Count 12.38 K/mm3 (4.00-11.30)
[2022-01-22 19:41] LABS: Albumin, Blood 2.5 g/dL (3.4-5.0); Albumin/Globulin Ratio 0.6 (0.8-1.8); Bilirubin, Total 0.7 mg/dL (0.1-1.0); Bun/Creatinine Ratio 19.7 (12.0-20.0); Calcium, Blood 8.5 mg/dL (8.5-10.1); Creatinine, Blood 1.17 mg/dL (0.60-1.20); Globulin, Blood 4.3 g/dL (2.2-4.0); Potassium, Blood 3.4 mmol/L (3.5-5.5); Total Protein, Blood 6.8 g/dL (6.4-8.2)
[2022-01-22 20:26] LABS: Influenza A, PCR NEGATIVE (NEGATIVE); Influenza B, PCR NEGATIVE (NEGATIVE); Resp Syncytial Virus, PCR NEGATIVE (NEGATIVE); SARS-Cov-2 (COVID-19) PCR, MMC NEGATIVE (NEGATIVE)
--- NOTE | 2022-01-23 01:27 | NUR ---
PT ARRIVED TO MEDICAL FLOOR AT 0115 WTIH IV POLE AND PERSONAL BELONGINGS. SHIVERING UPON ARRIVAL WITH C/O NAUSEA. PRN APAP ADMINISTERED FOR TEMP 99.7 AND PRN ZOFRAN IV ADMINISTERED FOR C/O NAUSEA.
--- NOTE | 2022-01-23 05:10 | NUR ---
CALL TO ON-CALL DR CABELLO R/T PT'S IRREGULAR RHYTHM AND HR OF 85. PER DR CABELLO: CONTINUE TO MONITOR. CHECK MAG LEVEL IN AM.
[2022-01-23 05:22] LABS: Hematocrit 32.8 % (37.0-53.0); Hemoglobin 10.7 g/dL (13.5-17.5); Mean Corpuscular HGB 26.9 pg (26.0-34.0); Mean Corpuscular HGB Conc 32.6 g/dL (31.5-36.5); Mean Corpuscular Volume 82 fL (80-100); Mean Platelet Volume 10.1 fL (9.1-12.4); Platelet Count 161 K/mm3 (150-400); RDW Coefficient Variation 16.7 % (11.7-14.2); RDW Standard Deviation 50.3 fL (35.1-46.3); Red Blood Cell Count 3.98 M/mm3 (4.30-5.90); White Blood Cell Count 10.95 K/mm3 (4.00-11.30)
--- NOTE | 2022-01-23 05:37 | NUR ---
A&Ox4. PLEASANT AND COOPERATIVE WITH CARE. ARRIVED TO UNIT WITH LOW-GRADE FEVER, CHILLS, NAUSEA AND ELEVATED BP. ADMINISTERED PRN APAP, ZOFRAN AND PO K+. LOW O2 NOTED UPON RECHECK OF V/S. INCREASED TO 95% FROM <88% WITH 2L/MIN VIA NC. EKG IN ED SHOWED NORMAL SINUS RHYTHM; NOTED TO BE REGULARLY IRREGULAR UPON BOTH PALPATION OF RADIAL PULSE AND AUSCULTATION OF APICAL PULSE. PER DR CABELLO: DRAW MAG LEVEL AND CONTINUE TO MONITOR. ORDER ADDED TO LABS DRAWN THIS AM. RHOADES PATENT AND DRAINING TO GRAVITY. IV RT AC PATENT AND INFUSING, THOUGH POSITIONAL. Dx MS AND REQUIRES ASSISTANCE REPOSITIONING.
[2022-01-23 05:51] LABS: Magnesium, Blood 1.9 mg/dL (1.6-2.4)
[2022-01-23 05:52] LABS: Bun/Creatinine Ratio 20.6 (12.0-20.0); Calcium, Blood 8.2 mg/dL (8.5-10.1); Creatinine, Blood 1.02 mg/dL (0.60-1.20)
--- NOTE | 2022-01-23 18:52 | NUR ---
SHIFT SUMMARY PT IS A&OX4 AND PLEASANT. PT'S SPEACH IS SLOW AND AT TIMES HAS DIFFICULTY FORMING WORDS. PT HAS PERMANANT RHOADES CATH R/T NEUROGENIC BLADDER SECONDARY TO MS. PT IS ON BEDREST. PT WAS COLD DURING THE AM BUT IN THE AFTERNOON HAD A TEMP OF 104.4 THE DOCTOR WAS NOTIFIED AND TYLENOL WAS GIVEN. PT'S TEMP CAME DOWN TO 101.3. PT IS RESTING COMFORTABLY. WILL CONTINUE TO MONITOR.
--- NOTE | 2022-01-24 06:17 | NUR ---
Rn summary: Patient is alert, he has freq needs. He has not rested much tonight. He has had no temp tonight. Patient with chronic richards, urine is dk yellow with pink tinge, here for UTI and diskitis. New IV to rt forearm. Pt has minimal gross movement to legs due to MS. Pt has dropped his water glass 3 times tonight. Smaller sippie cup given with good results. Patient has week arm and hand strength. Pt has thick white mucus he coughs up, does receive mucenex Bid. Call light in reach. Will continue to monitor.
[2022-01-24 08:37] LABS: BASOPHILS ABSOLUTE AUTO 0.01 K/mm3 (0.00-0.23); BASOPHILS PERCENT AUTO 0 % (0-2); EOSINOPHILS ABSOLUTE AUTO 0.01 K/mm3 (0.00-0.68); EOSINOPHILS PERCENT AUTO 0 % (0-6); Hematocrit 32.8 % (37.0-53.0); Hemoglobin 10.8 g/dL (13.5-17.5); IMMATURE GRAN ABSOLUTE AUTO 0.02 K/mm3 (0.00-0.10); IMMATURE GRAN PERCENT AUTO 0 % (0-1); LYMPHOCYTES ABSOLUTE AUTO 0.46 K/mm3 (0.84-5.20); LYMPHOCYTES PERCENT AUTO 6 % (21-46); MONOCYTES ABSOLUTE AUTO 0.57 K/mm3 (0.16-1.47); MONOCYTES PERCENT AUTO 8 % (4-13); Mean Corpuscular HGB 26.9 pg (26.0-34.0); Mean Corpuscular HGB Conc 32.9 g/dL (31.5-36.5); Mean Corpuscular Volume 82 fL (80-100); Mean Platelet Volume 10.5 fL (9.1-12.4); NEUTROPHILS ABSOLUTE AUTO 6.23 K/mm3 (1.96-9.15); NEUTROPHILS PERCENT AUTO 85 % (41-73); Platelet Count 148 K/mm3 (150-400); RDW Coefficient Variation 16.5 % (11.7-14.2); RDW Standard Deviation 49.1 fL (35.1-46.3); Red Blood Cell Count 4.01 M/mm3 (4.30-5.90)
[2022-01-24 08:54] LABS: Albumin, Blood 2.2 g/dL (3.4-5.0); Anion Gap 7 mmol/L (6-16); Blood Urea Nitrogen 18 mg/dL (8-24); Bun/Creatinine Ratio 19.2 (12.0-20.0); CO2, Blood 25 mmol/L (21-32); Calcium, Blood 8.2 mg/dL (8.5-10.1); Chloride, Blood 105 mmol/L (98-108); Creatinine, Blood 0.94 mg/dL (0.60-1.20); Glomerular Filtration Rate 82 (60-); Glucose, Blood 107 mg/dL (70-99); Potassium, Blood 3.6 mmol/L (3.5-5.5); Sodium, Blood 137 mmol/L (136-145)
[2022-01-24 09:07] LABS: Vancomycin, Trough 21.6 ug/mL (5.0-10.0)
--- NOTE | 2022-01-24 18:15 | NUR ---
SHIFT SUMMARY PT IS ALERT AND PLEASANT. PT'S VANCO TROUGH WAS ELEVATED, 21.6. VANCO HAS NOT BEEN GIVEN TODAY. PT STILL RECEIVING MERREM. PT HAD A VISIT FROM [facility] TODAY. PT HAS HAD UNSUCCESSFUL ATTEMPTS TO HAVE BM BUT IS PASSING GAS. MIRALAX WAS GIVEN AT 1400.
[2022-01-25 04:53] LABS: Vancomycin, Random 11.6 ug/mL
--- NOTE | 2022-01-25 05:50 | NUR ---
SHIFT SUMMARY PT ALERT AND ORIENTED. PULSE 60-80'S. BP STABLE. ON RA SATS OVER 95%. REMAINS ON BEDREST. CHRONIC RHOADES DRAINING TO GRAVITY, DARK NAILA COLORED URINE. 1300 EMPTIED OUT. ELEVATED TEMP RELIEVED WITH TYLENOL. ABLE TO MAKE NEEDS KNOWN. UNABLE TO HAVE BM, "JUST PASSING GAS". IN BED WITH CALL ALARM AT SIDE, WILL CONTINUE TO MONITOR UNTIL REPORT GIVEN TO DAYSHIFT RN
--- NOTE | 2022-01-25 15:45 | NUR ---
SHFIT SUMMARY PT IS ALERT AND PLEASANT. PT WAS ABLE TO PASS SMALL AMOUNT OF STOOL IN THE AM USING THE BEDPAN. C/O UPSET STOMACH R/T SWOLLOWING MUCUS. PROVIDED PT WITH SELF SUCTION AND PT STATES IT HELPS. PT TAKEN FOR AN MRI TODAY WITH A POSSIBLE BONE BIOPSY FOR FRIDAY. VSS AND PT REMAINED AFEBRIE TODAY.
--- NOTE | 2022-01-25 17:12 | NUR ---
Pt resting in bed and is A&O. Pt denies pain and dyspnea at this time. Pt does report mild to moderate nausea. Primary RN David in offering anti nausea medication. Offered active listening as Pt reports being but may be considering a divorce. He states his "doesn't want hime any more". Pt eludes to elaborating more to this statement. Listened as Pt discusses some of his life events. 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 Pt does prefer to be addresses as Dr Doss. Continued therapeutic listening. Engaged in therpaeutic discussion regarding his wishes for code status. Pt confirms wishes are DNR. Pt is agreeable to complete a POLST form. Assisted with completing POLST. Pt expresses appreciation and reports no other concerns at this time. Palliative Care will obtain copy of POLST upon MD signature.
--- NOTE | 2022-01-26 06:09 | NUR ---
NOC SHIFT SUMMARY PT ADMITTED WITH COMPLICATED UTI. IV ABX CONTINUED. NO ISSUES NOTED OVERNIGHT.
--- NOTE | 2022-01-26 16:05 | NUR ---
SHIFT SUMMARY PATIENT IS ALERT AND ORIENTED X3. PATIENT IS PLEASENT AND COOPERATIVE WITH CARE. PATIENT HAS HAD NO ACUTE EVENTS THIS SHIFT. VITAL SIGNS REVIEWED. PATIENT HAS NOT COMPLAINED OF PAIN, SOB, NAUSEA OR VOMITTING THIS SHIFT. BED IN LOCKED AND LOWEST POSITION. CALL LIGHT IN PLACE. WILL MONITOR UNTIL SHIFT CHANGE.
--- NOTE | 2022-01-27 03:49 | NUR ---
SHIFT SUMMARY; PATIENT DID NOT SLEEP MUCH DURING NIGHT. HE WAS MEICATED AT 0100 FOR PAIN WITH OXYCODONE. HE IS CURRENTLY WATCHING TV. TOOK MELATONIN EARLIER IN THE NIGHT WITH NO SUCCESS. HE HAS PLEASANT AFFECT AND IS COOPERATIVE WITH CARE. PER PATIENT HE IS LOOKING FORWARD TO POSSIBLY GOING TO [facility] AT [place]. HIS VITAL SIGNS ARE ALL WNL. LUNGS ARE CLEAR TO AUSCULTATION. PEDAL PULSES ARE FAINT BUT PALPABLE. PATIENT HAS HISTORY OF MS AND HAS MUCH MUSCLE WEAKNESS. LUNGS ARE CLEAR TO AUSCULTATION. WILL CONTINUE TO MONITOR THIS PATIENT CLOSELY UNTIL REPORT AND HAND OFF TO DAY SHIFT RN. AND DRINK WATER WITHOUT DIFFICULTY.
[2022-01-27 05:07] LABS: Hematocrit 33.5 % (37.0-53.0); Hemoglobin 10.8 g/dL (13.5-17.5); Mean Corpuscular HGB 26.3 pg (26.0-34.0); Mean Corpuscular HGB Conc 32.2 g/dL (31.5-36.5); Mean Corpuscular Volume 82 fL (80-100); Mean Platelet Volume 10.1 fL (9.1-12.4); Platelet Count 193 K/mm3 (150-400); RDW Coefficient Variation 16.4 % (11.7-14.2); RDW Standard Deviation 49.1 fL (35.1-46.3); White Blood Cell Count 6.85 K/mm3 (4.00-11.30)
[2022-01-27 05:39] LABS: Bun/Creatinine Ratio 19.1 (12.0-20.0); Calcium, Blood 8.7 mg/dL (8.5-10.1); Creatinine, Blood 0.89 mg/dL (0.60-1.20); Potassium, Blood 3.7 mmol/L (3.5-5.5)
[2022-01-27 10:51] LABS: Source, Urine Foley catheter
[2022-01-27 10:59] LABS: Appearance, Urine Hazy (Clear); Bilirubin, Urine Neg (Neg); Blood, Urine 5+ (Neg); Glucose Qualitative, Urine Neg (Neg); Ketones, Urine Neg (Neg); Leukocyte Esterase, Urine 1+ (Neg); Nitrite, Urine Neg (Neg); Protein, Urine 2+ (Neg); Specific Gravity, Urine 1.015 (1.003-1.022); Urobilinogen, Urine NORM (Normal)
[2022-01-27 11:01] LABS: Color, Urine Pale Yellow (P-Yellow)
[2022-01-27 11:04] LABS: Bacteria Few /hpf; Squamous Epithelial Cells Rare /hpf (Few); White Blood Cells, Urine 0-2 /hpf (0-5); Yeast/Fungi Urine Many /hpf
--- NOTE | 2022-01-27 16:53 | NUR ---
SHIFT SUMMARY PATIENT IS ALERT AND ORIENTED. PATIENT HAS NOT HAD ANY ACUTE EVENTS THIS SHIFT. UA WAS COLLECTED AND PENDING. PATIENT HAS NOT HAD ANY INSTANCES OF SOB OR VOMITTING THIS SHIFT. PATIENT HAS BEEN MEDICATED FOR PAIN AND NAUSEA THIS SHIFT WITH GOOD RESULT. BED IN LOWEST AND LOCKED POSITION. CALL LIGHT IN PLACE WILL MONITOR UNTIL SHIFT CHANGE.
--- NOTE | 2022-01-28 06:00 | NUR ---
SHIFT SUMMARY; PATIENT HAD UNEVENTFUL NIGHT. HE HAS PLEASANT AFFECT AND IS COOPERATIVE. HE SLEEPS WELL DURING THE NIGHT. HIS VITAL SIGNS ARE STABLE THROUGHOUT THE NOC SHIFT. HE IS MEDICATED X 1 FOR PAIN. PATIENT USES HIS CALL LIGHT APPROPRIATELY AND IS ABLE TO MAKE HIS NEEDS KNOWN. HIS LUNGS ARE DIM BUT CLEAR THROUGHOUT. WILL REMAIN AVAILABLE FOR THIS PATIENT FOR ANY WANTS OR NEEDS UNTIL REPORT AND HAND OFF TO DAY SHIFT RN.
--- NOTE | 2022-01-28 14:51 | NUR ---
SHIFT SUMMARY PT RESTING QUIETLY AT START OF SHIFT. WOKE EASILY FOR CARE. CHRONIC RHOADES PATENT; DRAINING CL YELLOW URINE. IN CONTACT [facility] FOR ES[facility] IN URINE. IMAGING CALLED TO REPORT CT BIOPSY WOULD NOT BE DONE TODAY. DR VELÁSQUEZ LATER TO TO SEE PT. UPDATE GIVEN. DR VELÁSQUEZ STATED BIOPSY TO DONE 48 HRS AFTER PT OFF IV ABX. VANCO AND MERREM D/C'D PER ORDERS. IMAGING NOTIFIED TO CHANGE CT BIOPSY TO . PT IS A&O, PLEASANT AND CO-OP WITH CARE. QUADRIPLIGIC D/T M/S; EXTREMITIE'S WEAK AND FLACCID. MEDICATED FOR C/O PAIN AND NAUSEA X1 THIS AM. REPORTED MEDICATION EFFECTIVE. DENIED FURTHER NEEDS. CALL LT IN REACH. RESTING QUIETLY AT THIS TIME.
--- NOTE | 2022-01-29 01:01 | NUR ---
01/28/222025 PT LYING IN BED, REPORTS ITCHING ON HIS BACK, USED POWDER, WILL EVAL FOR EFFECT. PT HAS SCRATCHED AT HIS GROIN AND GAVE HIMSELF SCRATCHES WITH HIS FINGERNAILS. IV NO LONGER PATENT, DC'D IV. RHOADES, CLEAR AND YELLOW URINE. NO OTHE APPARENT SIGNS OF DISTRESS. CALL LIGHT IS IN REACH.
--- NOTE | 2022-01-29 01:03 | NUR ---
01/28/220 PT REPORTS BACK IS ITCHING AGAIN, USED LOTION, WILL EVAL FOR EFFECT.NO OTHER APPARENT SIGNS OF DISTRESS. CALL LIGHT IS IN REACH.
--- NOTE | 2022-01-29 01:37 | NUR ---
0000 PT LYING IN BED, EYES CLOSED, APPEARS TO BE RESTING. BREATHING IS EVEN, UNLABORED. NO APPARENT SIGNS OF DISTRESS. CALL LIGHT IS IN REACH. BED ALARM IS ON.
--- NOTE | 2022-01-29 02:04 | NUR ---
PT LYING IN BED, EYES CLOSED, APPEARS TO BE RESTING.BREATHING IS EVEN, UNLABORED. NO APPARENT SIGNS OF DISTRESS. CALL LIGHT IS IN REACH.
--- NOTE | 2022-01-29 03:26 | NUR ---
PT SPILLED COFFEE ON HIS GOWN. [employer] CHANGED GOWN AND REPOSITIONED THE PT. NO OTHER APPARENT SIGNS OF DISTRESS. CALL LIGHT IS IN REACH.
--- NOTE | 2022-01-29 03:35 | NUR ---
PT IS AAO X 4, REPORTED ITCHING ON HIS BACK, GROIN, AND HEAD. USING POWDER OR LOTION ON HIS BACK, POWDER IN GROIN AREA. HAS SOME SCRATCHES IN GROIN AREA FROM PT'S FINGERNAIL FROM SCRATCHING. RHOADES, CLEAR YELLOW URINE.
--- NOTE | 2022-01-29 04:52 | NUR ---
PT HAS A CHRONIC RHOADES R/T A NEUROGENIC BLADDER, HE IS A FUNCTIONAL QUADRAPLEGIC. HIS RHOADES IS CHANGED EVERY 3 WEEKS BY HIS UROLOGIST. IT WAS LAST CHANGED 01/11/22, IT IS NEXT DUE TO BE CHANGED 02/01/22. HE DOES NOT WANT US TO CHANGE IT, HE WANTS US TO LEAVE IT FOR HIS UROLOGIST.
--- NOTE | 2022-01-29 05:41 | NUR ---
PT LYING IN BED, EYES CLOSED, APPEARS TO BE RESTING. BREATHING IS EVEN, UNLABORED. NO APPARENT SIGNS OF DISTRESS. CALL LIGHT IS IN REACH. NO OTHER CHANGES THIS SHIFT.
--- NOTE | 2022-01-29 17:48 | NUR ---
SHIFT SUMMARY PT A&OX3-4 AND IN PLEASENT MOOD T/O SHIFT. C/O ITCHY BACK T/O SHIFT, POWDER APPLIED PER PT REQUEST. TOLERATING PO INTAKE, EATING MIN AMOUNTS. CALL LIGHT W/IN REACH. VSS. CHRONIC RHOADES IN PLACE, DRAINING TO GRAVITY. PLAN FOR BIOPSY TOMORROW.
--- NOTE | 2022-01-30 00:15 | NUR ---
GOT REPORT FROM [facility], WILL BE TAKING OVER CARE OF THIS PT AT 0100.
--- NOTE | 2022-01-30 00:24 | NUR ---
PT AWAKE AT START OF SHIFT WATCHING TV. C/O ITCHING TO BACK AND REQUESTED POWDER RUBBED ON IT; DONE PER REQUEST. HS MEDS GIVEN PER EMAR. PT REPOSITIONED FOR COMFORT AND PILLOWS PLACED TO KEEP PRESSURE OFF BUTTOCKS. PT SOON REMOVED PILLOWS AND THRU THEM ON THE FLOOR. PT DOES NOT TURN HIMSELF AND WILL NOT ALLOW TO BE TURNED TO SIDE. PT IS PLEASANT, BUT CAN BE VERY NEEDY, CALLING FREQUENTLY FOR ATTENTION. PT REPORTED NO BM FOR A COUPLE OF DAYS. PT TO RECEIVE BOWEL CARE PER EMAR. PT CURRENTLY RESTING QUIETLY WITH TV ON. CALL LT IN REACH.
--- NOTE | 2022-01-30 08:01 | NUR ---
SEE DOWNTIME CHARTING FOR NOTES FOR 01/30/22 FROM 0045 TO 0692
--- NOTE | 2022-01-30 18:37 | NUR ---
SUMMARY- PT A/O, PLEASANT AND COOPERATIVE. FUNCTIONAL QUAD. UP IN CHAIR USING LIFT THROUGH LUNCH AND DINNER. RHOADES PATENT AND DRAINING. TOLERATING FOOD AND FLUIDS. PAIN IN LOW BACK CONTROLLED WITH OXY PRN APPROX Q6. BONE BX DONE TODAY. VSS. WILL REPORT TO VIKY FERNANDO.
--- NOTE | 2022-01-31 03:56 | NUR ---
PT ALERT AND ORIENTED, PLEASANT AND COOPERATIVE, FUNCTIONAL QUAD. RHOADES PATENT AND DRAINING DUE TO BE CHANGED 02/01 (PT WANTS UROLOGIST TO CHANGE). ANTIBIOTICS HAD BEEN HELD X 2 DAYS, RESTARTED PENDING CULTURE/BIOPSY RESULTS. PLACE NEW 22G IV IN RFA. PAIN CONTROLLED WITH PRN OXYCODONE Q6H.
--- NOTE | 2022-01-31 08:00 | NUR ---
pt laying in bed awake a/ox3, pleasant and cooperative with care, follows commands well, denies pain this am, takes po meds without diff, lungs are clear in upper, fine crackles in bases, resp even and unlabored, on r/a, no cough noted, hrr, no edema noted, ppp+1, cap refill <3sec, vs stable, afebrile, iv site to rfa is clear and patent, btx4, abd flat soft nontender, voids via chronic richards cath, yellow urine, skin c/w/d, maew, parrish, call light in reach.
--- NOTE | 2022-01-31 18:26 | NUR ---
pt complained of constipation, new orders were recieved for him, gave him a dose of lactulose, and claritin for itching. no further needs or acute changes this shift, call light in reach.
--- NOTE | 2022-02-01 04:22 | NUR ---
PT ALERT AND ORIENTED, DOES BECOME CONFUSED AT TIMES REGARDING MEDICATIONS AND CARES, OTHERWISE PLESANT AND COOPERATIVE FUNCTIONAL QUAD WITH NO USE OF LOWER EXTREMITIES NEEDS ASSISTANCE REPOSITIONING, DELCINED GETTING OUB, COMPLAINT OF ITCHING ON BACK MEDICATIONS GIVEN, NO NOTED RASH OR REDNESS TO CAUSE ITCHING.
--- NOTE | 2022-02-01 18:47 | NUR ---
SUMMARY- PT A/O X3-4. FUNCT QUAD WITH MS. FEEDS SELF WITH SET UP. AWAITING CX FOR APPROP ABX TO GO BACK TO [facility]. PAIN IN LOW BACK CONTROLLED WITH OXYCODONE APPROX Q6. NO BM SINCE 01/25. MEDICATED WITH MOM AND SUPP, HAD SM LOOSE. RECTAL VAULT CHECKED, HAS FORMED SOFT STOOL HIGH IN RECTUM. GAVE ADDITIONAL MOM- WILL LIKELY NEED ANOTHER SUPP TONIGHT. CHRONIC RHOADES PATENT AND DIAINING. CALAZYME AND NYSTATIN CREAM TO GROIN REDNESS. UP IN CHAIR AFTER BREAKFAST THROUGH LUNCH, LIFT TO CHAIR AND BACK TO BED. WILL REPORT ALL TO NOC ABDULLAHI.
--- NOTE | 2022-02-02 05:05 | NUR ---
SHIFT SUMMARY AOX4. VSS. ABLE TO ROTATE BLE FROM SIDE TO SIDE, UNABLE TO LIFT OFF BED, ABLE TO USE HANDS & ARMS, WEAK. REPORTS 7/10 PAIN LOW BACK, FLANK PAIN, AROUND BIOPSY SITE, L LOW BACK, NO SWELLING OR DRAINAGE NOTED. PT DENIES NEED FOR PAIN MEDICATION. REPORTS NO BM IN 5 DAYS & UPSET STOMACH, STATES HE FEELS "QUEEZY" MEDICATED c ZOFRAN, MOM & BOWEL CARE PER ORDERS, HAD 3 LIQUID SMEAR BMS THIS SHIFT. PT STATES HE STILL FEELS CONSTIPATED & WOULD LIKE AN ENEMA, WILL INFORM HOSPITALIST. REPOSITIONED PRN. RHOADES PATENT & DRAINING CLEAR ORANGE URINE. RECTUM & GROIN RED, POWDER & BARRIER APPLIED PRN. AWAITING CULTURE RESULTS. CALL LIGHT IN REACH. WILL MONITOR.
[2022-02-02] MEDS ORDERED: BISA10S PR (15:47)
[2022-02-02] MEDS ORDERED: DOCUZEN 8.6-501 EACH PO (15:48)
[2022-02-02] MEDS ORDERED: LORA10ER PO (15:48)
[2022-02-02] MEDS ORDERED: MIRALAX17 GM PO (15:49)
[2022-02-02] MEDS ORDERED: Vitamin D1000 UNI1 PO (15:49)
[2022-02-02] MEDS ORDERED: MICONAZOLE NIT130 GM TOP (15:49)
[2022-02-02 16:40] LABS: SARS-Cov-2 (COVID-19) PCR, MMC NEGATIVE (NEGATIVE)
== END 2022-02-02 17:41 | DRG 853 ==
LOC: ER 18:00 → MEDS 23:44
PROVIDERS: Family Medicine; Internal Medicine; Pharmacist; Physician Assistant; ADMIT Internal Medicine
PROC: 3E03329 Introduction of Other Anti-infective into Peripheral Vein, Percutaneous Approach (ICD-10-PCS; principal; 2022-01-22)
PROC: 0Q903ZX Drainage of Lumbar Vertebra, Percutaneous Approach, Diagnostic (ICD-10-PCS; 2022-01-30)
DX: A41.02 Sepsis due to Methicillin resistant Staphylococcus aureus (principal); R53.2 Functional quadriplegia; M46.26 Osteomyelitis of vertebra, lumbar region; A18.01 Tuberculosis of spine; E87.1 Hypo-osmolality and hyponatremia; B37.7 Candidal sepsis; Z20.822 Contact with and (suspected) exposure to COVID-19; Z66 Do not resuscitate; M46.46 Discitis, unspecified, lumbar region; G35 Multiple sclerosis; N31.8 Other neuromuscular dysfunction of bladder; N18.2 Chronic kidney disease, stage 2 (mild); E87.6 Hypokalemia; G47.00 Insomnia, unspecified; B96.20 Unspecified Escherichia coli [E. coli] as the cause of diseases classified elsewhere; B95.2 Enterococcus as the cause of diseases classified elsewhere; Z96.0 Presence of urogenital implants; Z99.3 Dependence on wheelchair; Z95.4 Presence of other heart-valve replacement; Z79.891 Long term (current) use of opiate analgesic; Z98.890 Other specified postprocedural states; Z87.442 Personal history of urinary calculi; Z87.440 Personal history of urinary (tract) infections; Z88.0 Allergy status to penicillin; Z79.02 Long term (current) use of antithrombotics/antiplatelets; Z79.52 Long term (current) use of systemic steroids; Z79.82 Long term (current) use of aspirin; Z79.899 Other long term (current) drug therapy
CPT/HCPCS: 0241U; 20225; 36415; 72131; 72158; 77012; 80048; 80053; 80069; 80202; 81001; 82565; 83605; 83735; 84100; 84145; 85025; 85027; 85651; 86140; 87040; 87070; 87075; 87086; 87205; 88108; 93005; 93010; 96365; 96366; 96367; 99285-25; A9270; A9579; J0713; J1650; J2185; J2405; J3370; J7030; J7050; U0004

== ENCOUNTER 2022-06-14 10:36 | Emergency (ER) | payer MEDICARE ==
[~2022-06-14] VITALS: Ht 185.4 cm; Wt 97.1 kg
[~2022-06-14 10:36] MED LIST changes: +DOCUZEN 8.6-501 EACH PO; +LORA10ER PO; +MICONAZOLE NIT130 GM TOP; +MIRALAX17 GM PO; +Vitamin D1000 UNI1 PO
[2022-06-14] MEDS ORDERED: MIRALAX17 GM PO (11:55)
[2022-06-14] MEDS ORDERED: Magic Bullet10 MG PR (11:55)
== END 2022-06-14 12:39 | disposition home or self-care (01) ==
LOC: ER 10:36
DX: K59.00 Constipation, unspecified (principal); G35 Multiple sclerosis; Z88.0 Allergy status to penicillin; Z79.82 Long term (current) use of aspirin; Z79.899 Other long term (current) drug therapy
CPT/HCPCS: 74019

== ENCOUNTER 2023-04-22 08:57 | Day surgery (SDC) | payer MEDICARE ==
[~2023-04-22] VITALS: Ht 185.4 cm; Wt 106.1 kg
[~2023-04-22 08:57] MED LIST changes: +Magic Bullet10 MG PR
[2023-04-22 11:46] VITALS: BP 126/86
== END 2023-04-22 11:34 | disposition home or self-care (01) ==
LOC: ORSCSDS 08:57
PROVIDERS: Surgery
PROC: 0DBK8ZX Excision of Ascending Colon, Via Natural or Artificial Opening Endoscopic, Diagnostic (ICD-10-PCS; principal; 2023-04-22 10:30)
DX: Z12.11 Encounter for screening for malignant neoplasm of colon (principal); Z86.010 Personal history of colon polyps; D12.2 Benign neoplasm of ascending colon; K57.30 Diverticulosis of large intestine without perforation or abscess without bleeding; I48.91 Unspecified atrial fibrillation; E78.5 Hyperlipidemia, unspecified; I12.9 Hypertensive chronic kidney disease with stage 1 through stage 4 chronic kidney disease, or unspecified chronic kidney disease; N18.9 Chronic kidney disease, unspecified; Z79.82 Long term (current) use of aspirin; Z79.899 Other long term (current) drug therapy
CPT/HCPCS: 88305; J2704; J7120

== ENCOUNTER → 2024-06-24 | Outpatient (CLI) | payer MEDICARE ==
[2024-06-24 17:43] LABS: BASOPHILS ABSOLUTE AUTO 0.05 K/mm3 (0.00-0.23); BASOPHILS PERCENT AUTO 1 % (0-2); EOSINOPHILS ABSOLUTE AUTO 0.31 K/mm3 (0.00-0.68); EOSINOPHILS PERCENT AUTO 3 % (0-6); Hematocrit 41.2 % (37.0-53.0); Hemoglobin 13.9 g/dL (13.5-17.5); IMMATURE GRAN ABSOLUTE AUTO 0.05 K/mm3 (0.00-0.10); IMMATURE GRAN PERCENT AUTO 1 % (0-1); LYMPHOCYTES ABSOLUTE AUTO 0.79 K/mm3 (0.84-5.20); LYMPHOCYTES PERCENT AUTO 8 % (21-46); MONOCYTES ABSOLUTE AUTO 0.87 K/mm3 (0.16-1.47); MONOCYTES PERCENT AUTO 9 % (4-13); Mean Corpuscular HGB 30.1 pg (26.0-34.0); Mean Corpuscular HGB Conc 33.7 g/dL (31.5-36.5); Mean Corpuscular Volume 89 fL (80-100); Mean Platelet Volume 10.8 fL (9.1-12.4); NEUTROPHILS ABSOLUTE AUTO 7.32 K/mm3 (1.96-9.15); NEUTROPHILS PERCENT AUTO 78 % (41-73); NRBC ABSOLUTE 0.02 K/mm3 (0.00-0.02); NRBC Auto 0.2 /100 WBC (0.0-0.2); Platelet Count 201 K/mm3 (150-400); RDW Coefficient Variation 14.6 % (11.7-14.2); RDW Standard Deviation 47.5 fL (35.1-46.3); Red Blood Cell Count 4.62 M/mm3 (4.30-5.90); White Blood Cell Count 9.39 K/mm3 (4.00-11.30)
[2024-06-24 18:34] LABS: Albumin, Blood 2.8 g/dL (3.4-5.0); Albumin/Globulin Ratio 0.7 (0.8-1.8); Bilirubin, Total 0.5 mg/dL (0.1-1.0); Bun/Creatinine Ratio 30.1 (12.0-20.0); Calcium, Blood 9.2 mg/dL (8.5-10.1); Creatinine, Blood 0.77 mg/dL (0.60-1.20); Globulin, Blood 3.8 g/dL (2.2-4.0); Potassium, Blood 4.1 mmol/L (3.5-5.5); Thyroid Stimulating Hormone 1.79 uIU/mL (0.360-4.800); Total Protein, Blood 6.6 g/dL (6.4-8.2)
== END | disposition home or self-care (01) ==
LOC: LAB SHORT 15:04
PROVIDERS: Internal Medicine
DX: E55.9 Vitamin D deficiency, unspecified (principal); I10 Essential (primary) hypertension; R73.9 Hyperglycemia, unspecified
CPT/HCPCS: 80053; 82306; 83036; 84443; 85025

== ENCOUNTER 2024-07-25 14:55 | Emergency (ER) | payer OTHER ==
[~2024-07-25] VITALS: Ht 185.4 cm; Wt 99.3 kg
[2024-07-25 16:03] LABS: Source, Urine Foley catheter
[2024-07-25 16:05] LABS: Appearance, Urine Cloudy (Clear); Bilirubin, Urine Neg (Neg); Blood, Urine 5+ (Neg); Color, Urine Yellow (P-Yellow); Glucose Qualitative, Urine Neg (Neg); Ketones, Urine Neg (Neg); Leukocyte Esterase, Urine 3+ (Neg); Nitrite, Urine Neg (Neg); Protein, Urine 2+ (Neg); Urobilinogen, Urine NORM (Normal)
[2024-07-25 16:12] LABS: Bacteria Many /hpf; Red Blood Cells, Urine 25-50 /hpf (0-2); Squamous Epithelial Cells Few /hpf (Few); White Blood Cells, Urine TNTC /hpf (0-5)
[2024-07-25 16:13] LABS: Amorphous Light (0-Heavy)
[2024-07-25 16:14] LABS: Renal Epithelial Rare /hpf (0-Rare)
[2024-07-25] MEDS ORDERED: SULTRIDS PO (16:34)
[2024-07-25] MEDS ORDERED: Trimethoprim/Sulfamethoxazole DS Tab PO ONE (17:05)
[2024-07-25] MEDS ORDERED: Aspir 8181 MG PO (17:17)
[2024-07-25] MEDS ORDERED: HYDR1TAB94 PO (17:18)
[2024-07-25] MEDS ORDERED: MIRALAX17 GM (17:19)
[2024-07-25] MEDS ORDERED: QUET25 PO (17:20)
[2024-07-25] MEDS ORDERED: [UNRECOGNIZED DRUG - CODE] PO (17:22)
[2024-07-25] MEDS ORDERED: TROSPIUM CHLORI20 MG PO (17:23)
[2024-07-25] MEDS ORDERED: VITAMIN D325 MC3 PO (17:25)
[2024-07-25 17:56] LABS: BASOPHILS ABSOLUTE AUTO 0.03 K/mm3 (0.00-0.23); BASOPHILS PERCENT AUTO 0 % (0-2); EOSINOPHILS ABSOLUTE AUTO 0.32 K/mm3 (0.00-0.68); EOSINOPHILS PERCENT AUTO 3 % (0-6); Hematocrit 44.6 % (37.0-53.0); Hemoglobin 14.7 g/dL (13.5-17.5); IMMATURE GRAN ABSOLUTE AUTO 0.05 K/mm3 (0.00-0.10); IMMATURE GRAN PERCENT AUTO 0 % (0-1); LYMPHOCYTES PERCENT AUTO 8 % (21-46); MONOCYTES ABSOLUTE AUTO 1.02 K/mm3 (0.16-1.47); MONOCYTES PERCENT AUTO 9 % (4-13); Mean Corpuscular HGB 29.9 pg (26.0-34.0); Mean Corpuscular Volume 91 fL (80-100); Mean Platelet Volume 9.8 fL (9.1-12.4); NEUTROPHILS PERCENT AUTO 80 % (41-73); Platelet Count 161 K/mm3 (150-400); RDW Coefficient Variation 14.7 % (11.7-14.2); RDW Standard Deviation 49.1 fL (35.1-46.3); Red Blood Cell Count 4.92 M/mm3 (4.30-5.90); White Blood Cell Count 11.82 K/mm3 (4.00-11.30)
[2024-07-25 18:09] VITALS: BP 141/76
[2024-07-25 18:25] LABS: Albumin/Globulin Ratio 0.8 (0.8-1.8); Bilirubin, Total 0.9 mg/dL (0.1-1.0); Bun/Creatinine Ratio 26.2 (12.0-20.0); Calcium, Blood 9.4 mg/dL (8.5-10.1); Creatinine, Blood 0.8 mg/dL (0.60-1.20)
[2024-07-25] MEDS ORDERED: Trimethoprim/Sulfamethoxazole DS Tab PO SCH (21:00)
== END 2024-07-25 19:04 | disposition home or self-care (01) ==
LOC: ER 14:55
PROVIDERS: Emergency Medicine; Student in an Organized Health Care Education/Training Program
DX: T83.511A Infection and inflammatory reaction due to indwelling urethral catheter, initial encounter (principal); Z88.0 Allergy status to penicillin; Z91.040 Latex allergy status; Z79.899 Other long term (current) drug therapy; Z79.83 Long term (current) use of bisphosphonates; Z88.9 Allergy status to unspecified drugs, medicaments and biological substances
CPT/HCPCS: 36415; 80053; 81001; 85025; 87077; 87086; 87186; 99283; A9270

== ENCOUNTER → 2024-10-25 | Outpatient (CLI) | payer OTHER ==
[~2024-10-25] MED LIST changes: +Aspir 8181 MG PO; +HYDR1TAB94 PO; +MIRALAX17 GM; +QUET25 PO; +SULTRIDS PO; +TROSPIUM CHLORI20 MG PO; +VITAMIN D325 MC3 PO; +[UNRECOGNIZED DRUG - CODE] PO
[2024-10-25 19:56] LABS: Appearance, Urine Hazy (Clear); Bilirubin, Urine Neg (Neg); Blood, Urine 5+ (Neg); Color, Urine Yellow (P-Yellow); Glucose Qualitative, Urine Neg (Neg); Ketones, Urine Neg (Neg); Leukocyte Esterase, Urine 2+ (Neg); Nitrite, Urine Pos (Neg); Protein, Urine 1+ (Neg); Specific Gravity, Urine 1.015 (1.003-1.022); Urobilinogen, Urine NORM (Normal)
[2024-10-25 20:33] LABS: Bacteria Many /hpf; Squamous Epithelial Cells Few /hpf (Few)
[2024-10-25 20:34] LABS: Amorphous Mod (0-Heavy)
== END ==
LOC: LAB 15:40 → LAB SHORT 15:40
PROVIDERS: Internal Medicine
DX: N39.0 Urinary tract infection, site not specified (principal)
CPT/HCPCS: 81001; 87077; 87086; 87186

== ENCOUNTER 2024-11-27 14:34 | Emergency (ER) | payer OTHER ==
[~2024-11-27] VITALS: Ht 185.4 cm; Wt 99.8 kg
[2024-11-27] MEDS ORDERED: NS 1,000 ML IV SCH (15:45)
[2024-11-27 15:55] LABS: Source, Urine Clean Catch
[2024-11-27 16:01] LABS: BASOPHILS ABSOLUTE AUTO 0.02 K/mm3 (0.00-0.23); BASOPHILS PERCENT AUTO 0 % (0-2); EOSINOPHILS ABSOLUTE AUTO 0.00 K/mm3 (0.00-0.68); EOSINOPHILS PERCENT AUTO 0 % (0-6); Hematocrit 43.8 % (37.0-53.0); Hemoglobin 14.5 g/dL (13.5-17.5); IMMATURE GRAN ABSOLUTE AUTO 0.05 K/mm3 (0.00-0.10); IMMATURE GRAN PERCENT AUTO 1 % (0-1); LYMPHOCYTES ABSOLUTE AUTO 0.32 K/mm3 (0.84-5.20); LYMPHOCYTES PERCENT AUTO 4 % (21-46); MONOCYTES ABSOLUTE AUTO 0.48 K/mm3 (0.16-1.47); MONOCYTES PERCENT AUTO 5 % (4-13); Mean Corpuscular HGB Conc 33.1 g/dL (31.5-36.5); Mean Corpuscular Volume 91 fL (80-100); NEUTROPHILS ABSOLUTE AUTO 8.08 K/mm3 (1.96-9.15); NEUTROPHILS PERCENT AUTO 90 % (41-73); NRBC ABSOLUTE 0.00 K/mm3 (0.00-0.02); NRBC Auto 0.0 /100 WBC (0.0-0.2); Platelet Count 152 K/mm3 (150-400); RDW Coefficient Variation 14.2 % (11.7-14.2); RDW Standard Deviation 47.6 fL (35.1-46.3)
[2024-11-27 16:05] LABS: Bilirubin, Urine Neg (Neg); Color, Urine Yellow (P-Yellow); Glucose Qualitative, Urine Neg (Neg); Ketones, Urine Neg (Neg); Leukocyte Esterase, Urine 3+ (Neg); Protein, Urine 1+ (Neg); Specific Gravity, Urine 1.010 (1.003-1.022); Urobilinogen, Urine NORM (Normal)
[2024-11-27 17:05] LABS: Alanine Aminotransfer (ALT/SGP 22.0 U/L (12-78); Albumin, Blood 2.5 g/dL (3.4-5.0); Albumin/Globulin Ratio 0.7 (0.8-1.8); Anion Gap 9.0 mmol/L (3-11); Aspartate Aminotrans (AST/SGOT 23.0 U/L (12-37); Bilirubin, Total 0.8 mg/dL (0.1-1.0); Blood Urea Nitrogen 14.0 mg/dL (8-24); CO2, Blood 25.0 mmol/L (21-32); Calcium, Blood 8.3 mg/dL (8.5-10.1); Chloride, Blood 105.0 mmol/L (98-108); Creatinine, Blood 0.84 mg/dL (0.60-1.20); Globulin, Blood 3.6 g/dL (2.2-4.0); Glucose, Blood 105.0 mg/dL (70-99); Magnesium, Blood 1.5 mg/dL (1.6-2.4); Potassium, Blood 3.4 mmol/L (3.5-5.5); Sodium, Blood 136.0 mmol/L (136-145); Total Protein, Blood 6.1 g/dL (6.4-8.2)
[2024-11-27] MEDS ORDERED: CIPR500 PO (17:18)
[2024-11-27] MEDS ORDERED: ACET500 PO (21:10)
[2024-11-27 21:45] VITALS: BP 150/75
== END 2024-11-27 23:10 | disposition home or self-care (01) ==
LOC: ER 14:34
PROVIDERS: Emergency Medicine
DX: N39.0 Urinary tract infection, site not specified (principal); I12.9 Hypertensive chronic kidney disease with stage 1 through stage 4 chronic kidney disease, or unspecified chronic kidney disease; N18.30 Chronic kidney disease, stage 3 unspecified; Z79.899 Other long term (current) drug therapy; Z79.82 Long term (current) use of aspirin; Z88.0 Allergy status to penicillin; Z91.040 Latex allergy status
CPT/HCPCS: 80053; 81001; 83690; 83735; 85025; 93005; 93010; 96360; 99285-25; A9270; J7030

== ENCOUNTER 2025-05-21 03:57 | Emergency (ER) | payer OTHER ==
[~2025-05-21] VITALS: Ht 185.4 cm; Wt 100.7 kg
[~2025-05-21 03:57] MED LIST changes: +ACET500 PO
[2025-05-21 04:27] LABS: Source, Urine Foley catheter
[2025-05-21 04:39] LABS: Bilirubin, Urine Neg (Neg); Glucose Qualitative, Urine Neg (Neg); Ketones, Urine Neg (Neg); Leukocyte Esterase, Urine 2+ (Neg); Protein, Urine Neg (Neg); Specific Gravity, Urine 1.005 (1.003-1.022); Urobilinogen, Urine NORM (Normal)
[2025-05-21 05:10] LABS: Color, Urine Pale Yellow (P-Yellow)
[2025-05-21 05:11] LABS: Red Blood Cells, Urine 0-2 /hpf (0-2)
[2025-05-21 11:28] VITALS: BP 138/69
== END 2025-05-21 11:29 | disposition home or self-care (01) ==
LOC: ER 03:57
PROVIDERS: Emergency Medicine
DX: T83.091A Other mechanical complication of indwelling urethral catheter, initial encounter (principal); Z88.0 Allergy status to penicillin; Z91.040 Latex allergy status; Z79.899 Other long term (current) drug therapy; Z79.2 Long term (current) use of antibiotics
CPT/HCPCS: 51702; 81001; 87077; 87086; 87186; 99283-25